=== PATIENT | female | born 1975 | race Caucasian/White ===

== ENCOUNTER 2019-08-09 09:03 | Outpatient (CLI) | payer OTHER, SELFPAY ==
[2019-08-09 09:34] LABS: Basophils Absolute Auto 0.1 K/mm3 (0.0-0.1); Basophils Percent Auto 0.8 % (0.2-1.2); Eosinophils Absolute Auto 0.3 K/mm3 (0-0.3); Eosinophils Percent Auto 4.3 % (0-4.4); Hemoglobin 9.7 g/dL (12.0-15.0); Immature Granulocyte Absolute 0.03 K/mm3 (0.00-0.031); Immature Granulocyte Percent A 0.4 % (0-0.5); Lymphocytes Absolute Auto 2.22 K/mm3 (0.9-3.2); Lymphocytes Percent Auto 28.9 % (18.3-44.2); Mean Corpuscular HGB Conc 31.3 g/dl (32-36); Mean Corpuscular Volume 86.4 fl (80-100); Mean Platelet Volume 10.5 fl (7.4-10.4); Monocytes Absolute Auto 0.9 K/mm3 (0.1-0.6); Monocytes Percent Auto 11.2 % (2.6-8.5); Neutrophils Absolute Auto 4.2 K/mm3 (1.3-6.7); Neutrophils Percent Auto 54.4 % (45.5-73.1); Platelet Count Result 348 k/mm3 (150-375); Red Blood Count 3.59 M/mm3 (4.2-5.4); Red Cell Distribution Width 14.6 % (11.5-14.5); White Blood Count 7.7 K/mm3 (4.5-10.0)
[2019-08-09 09:48] LABS: Alanine Aminotransferase 26 U/L (4-35); Albumin Level 4.3 g/dL (3.5-5.1); Alkaline Phosphatase 95 U/L (38-126); Aspartate Amino Transferase 32 U/L (14-36); Bilirubin,Total 0.2 mg/dL (0.2-1.3); Blood Urea Nitrogen 9 mg/dL (7-17); Calcium 9.1 mg/dL (8.4-10.2); Carbon Dioxide 26 mmol/L (22-30); Chloride 103 mmol/L (98-107); Estimated Glomerular Filt Rate > 60; Glucose 99 mg/dL (65-105); Potassium 3.9 mmol/L (3.4-5.0); Sodium 138 mmol/L (137-145)
[2019-08-09 09:55] LABS: Immunoglobulin A 256 mg/dL (70-400); Immunoglobulin G 897 mg/dL (700-1600); Immunoglobulin M 97 mg/dL (40-230)
[2019-08-13 22:17] LABS: Immunoglobulin E 13 kU/L (<=114)
== END 2019-08-09 09:04 | disposition home or self-care (01) ==
PROVIDERS: PCP Internal Medicine
DX: G35 Multiple sclerosis (principal); Z79.899 Other long term (current) drug therapy
CPT/HCPCS: 36415; 80053; 82784; 82785; 85025

== ENCOUNTER 2019-09-22 12:23 | Outpatient (CLI) | payer OTHER, SELFPAY ==
[2019-09-22 12:48] LABS: Basophils Absolute Auto 0.1 K/mm3 (0.0-0.1); Basophils Percent Auto 0.9 % (0.2-1.2); Eosinophils Absolute Auto 0.3 K/mm3 (0-0.3); Eosinophils Percent Auto 5.4 % (0-4.4); Hematocrit 39.6 % (37.0-47.0); Hemoglobin 12.7 g/dL (12.0-15.0); Immature Granulocyte Absolute 0.04 K/mm3 (0.00-0.031); Immature Granulocyte Percent A 0.6 % (0-0.5); Lymphocytes Absolute Auto 1.75 K/mm3 (0.9-3.2); Lymphocytes Percent Auto 27.6 % (18.3-44.2); Mean Corpuscular HGB Conc 32.1 g/dl (32-36); Mean Corpuscular Hemoglobin 29.1 pg (26-34); Mean Corpuscular Volume 90.8 fl (80-100); Mean Platelet Volume 10.3 fl (7.4-10.4); Monocytes Absolute Auto 0.5 K/mm3 (0.1-0.6); Monocytes Percent Auto 8.4 % (2.6-8.5); Neutrophils Absolute Auto 3.6 K/mm3 (1.3-6.7); Neutrophils Percent Auto 57.1 % (45.5-73.1); Platelet Count Result 334 k/mm3 (150-375); Red Blood Count 4.36 M/mm3 (4.2-5.4); Red Cell Distribution Width 18.6 % (11.5-14.5); White Blood Count 6.3 K/mm3 (4.5-10.0)
[2019-09-22 13:02] LABS: Alanine Aminotransferase 41 U/L (4-35); Albumin Level 4.5 g/dL (3.5-5.1); Alkaline Phosphatase 103 U/L (38-126); Aspartate Amino Transferase 37 U/L (14-36); Bilirubin,Total < 0.1 mg/dL (0.2-1.3); Blood Urea Nitrogen 8 mg/dL (7-17); Calcium 8.9 mg/dL (8.4-10.2); Carbon Dioxide 24 mmol/L (22-30); Chloride 106 mmol/L (98-107); Estimated Glomerular Filt Rate > 60; Glucose 93 mg/dL (65-105); Sodium 138 mmol/L (137-145)
[2019-09-22 13:33] LABS: Thyroid Stimulating Hormone 0.667 uIU/mL (0.465-4.680)
[2019-09-22 13:56] LABS: Iron 51 ug/dL (37-170)
[2019-09-22 14:05] LABS: Percent Iron Saturation 14 % (20-50)
[2019-09-22 14:08] LABS: Folic Acid 10.3 ng/mL (2.76->20)
== END 2019-09-22 12:24 | disposition home or self-care (01) ==
PROVIDERS: PCP Internal Medicine; Visit Provider Internal Medicine
DX: D64.9 Anemia, unspecified (principal); R53.83 Other fatigue
CPT/HCPCS: 36415; 80053; 82607; 82728; 82746; 83540; 83550; 84443; 85025

== ENCOUNTER 2020-01-27 17:54 | Outpatient (CLI) | payer OTHER, SELFPAY ==
[2020-01-27 18:11] LABS: Add Urine Microscopic? YES; Appearance Urine Cloudy (Clear); Bacteria Urine 1+ /hpf; Bilirubin Urine Negative (Negative); Blood Urine Negative (Negative); Color Urine Yellow (Yellow); Glucose Urine UA Negative (Negative); Ketones Urine Negative (Negative); Leukocyte Esterase Ur 2+ LEU/UL (Negative); Mucus Urine Rare /lpf; Nitrate Urine Negative (Negative); Protein Urine Negative (Negative); Renal Epithelial Cells Urine Rare /hpf (None Seen); Specific Grav Ur 1.014 (1.001-1.035); Squamous Epithelial Cell Urine Many /hpf (Few); Urobilinogen Urine Negative mg/dL (<2.0); WBC Urine 21-30 /hpf
== END 2020-01-27 17:55 | disposition home or self-care (01) ==
LOC: ANHLAB 17:54
PROVIDERS: PCP Internal Medicine; Visit Provider Psychiatry & Neurology Neurology
DX: R30.0 Dysuria (principal)
CPT/HCPCS: 81001; 87086; 87088

== ENCOUNTER 2020-02-06 11:35 | Outpatient (CLI) | payer OTHER, SELFPAY ==
[2020-02-06 12:13] LABS: Basophils Absolute Auto 0.1 K/mm3 (0.0-0.1); Basophils Percent Auto 0.8 % (0.2-1.2); Eosinophils Absolute Auto 0.2 K/mm3 (0-0.3); Hematocrit 41.2 % (37.0-47.0); Hemoglobin 14.3 g/dL (12.0-15.0); Immature Granulocyte Absolute 0.03 K/mm3 (0.00-0.031); Immature Granulocyte Percent A 0.4 % (0-0.5); Lymphocytes Absolute Auto 2.11 K/mm3 (0.9-3.2); Lymphocytes Percent Auto 28.9 % (18.3-44.2); Mean Corpuscular HGB Conc 34.7 g/dl (32-36); Mean Corpuscular Hemoglobin 33.8 pg (26-34); Mean Corpuscular Volume 97.4 fl (80-100); Mean Platelet Volume 10.2 fl (7.4-10.4); Monocytes Absolute Auto 0.7 K/mm3 (0.1-0.6); Monocytes Percent Auto 9.3 % (2.6-8.5); Neutrophils Absolute Auto 4.2 K/mm3 (1.3-6.7); Neutrophils Percent Auto 57.6 % (45.5-73.1); Platelet Count Result 309 k/mm3 (150-375); Red Blood Count 4.23 M/mm3 (4.2-5.4); Red Cell Distribution Width 12.7 % (11.5-14.5); White Blood Count 7.3 K/mm3 (4.5-10.0)
[2020-02-06 12:26] LABS: Alanine Aminotransferase 35 U/L (4-35); Albumin Level 4.6 g/dL (3.5-5.1); Alkaline Phosphatase 107 U/L (38-126); Anion Gap 11 mmol/L (8-16); Aspartate Amino Transferase 32 U/L (14-36); Bilirubin,Total 0.3 mg/dL (0.2-1.3); Blood Urea Nitrogen 11 mg/dL (7-17); Calcium 9.2 mg/dL (8.4-10.2); Carbon Dioxide 27 mmol/L (22-30); Chloride 103 mmol/L (98-107); Estimated Glomerular Filt Rate > 60; Glucose 110 mg/dL (65-105); Potassium 3.5 mmol/L (3.4-5.0); Sodium 141 mmol/L (137-145)
[2020-02-11 01:04] LABS: Immunoglobulin E 13 kU/L (<=114)
[2020-02-11 12:40] LABS: Immunoglobulin A 240 mg/dL (47-310); Immunoglobulin G 997 mg/dL (600-1640); Immunoglobulin M 86 mg/dL (50-300)
== END 2020-02-06 11:36 | disposition home or self-care (01) ==
LOC: ANHLAB 11:38
PROVIDERS: PCP Internal Medicine; Visit Provider Psychiatry & Neurology Neurology
DX: G35 Multiple sclerosis (principal); Z79.899 Other long term (current) drug therapy
CPT/HCPCS: 36415; 80053; 82784; 82785; 85025

== ENCOUNTER 2020-03-31 06:54 | Outpatient (NON) | payer OTHER, SELFPAY ==
[2020-03-31 18:06] LABS: SARS-CoV-2 RNA PCR Negative
== END 2020-03-31 06:55 ==
LOC: ANHCOVIDDT 07:14
PROVIDERS: PCP Internal Medicine; Visit Provider Clinical Nurse Specialist
DX: Z20.828 Contact with and (suspected) exposure to other viral communicable diseases (principal); R05 Cough
CPT/HCPCS: 87635; C9803; U0003

== ENCOUNTER 2020-04-01 18:08 | Outpatient (CLI) | payer OTHER, SELFPAY ==
--- NOTE | ~2020-04-01 | XR_ITS ---
EXAMINATION: XR chest 2V EXAM DATE: 04/01/2020 18:26 INDICATION: Cough for 4 days. TECHNIQUE: Frontal and lateral projections of the chest obtained and reviewed. Comparison is made to prior examination from 04/30/2019. FINDINGS: The lungs are clear. There are no pleural effusions. The cardiomediastinal silhouette is within normal limits. There is no pneumothorax suspected. The bones and soft tissues are unremarkab le. There is no significant interval change. IMPRESSION: No acute cardiopulmonary findings. Reviewed, dictated and finalized at location G. UREMENT MANAGER
== END 2020-04-01 18:09 | disposition home or self-care (01) ==
PROVIDERS: PCP Internal Medicine; Visit Provider Clinical Nurse Specialist
DX: R05 Cough (principal)
CPT/HCPCS: 71046

== ENCOUNTER 2020-04-17 06:58 | Outpatient (NON) | payer SELFPAY ==
[2020-04-19 08:12] LABS: Influenza Control Positive
[2020-04-19 18:50] LABS: SARS-CoV-2 RNA PCR Negative
== END 2020-04-17 06:59 ==
LOC: ANHCOVIDDT 06:58
PROVIDERS: PCP Internal Medicine; Visit Provider Clinical Nurse Specialist
DX: J02.9 Acute pharyngitis, unspecified (principal); Z20.828 Contact with and (suspected) exposure to other viral communicable diseases
CPT/HCPCS: 87804; C9803; U0003

== ENCOUNTER 2020-08-12 13:37 | Outpatient (CLI) | payer BC, SELFPAY ==
[2020-08-12 14:09] LABS: Basophils Percent Auto 0.5 % (0.2-1.2); Eosinophils Absolute Auto 0.2 K/mm3 (0-0.3); Eosinophils Percent Auto 2.6 % (0-4.4); Hematocrit 35.8 % (37.0-47.0); Hemoglobin 11.8 g/dL (12.0-15.0); Immature Granulocyte Absolute 0.02 K/mm3 (0.00-0.031); Immature Granulocyte Percent A 0.2 % (0-0.5); Lymphocytes Absolute Auto 2.11 K/mm3 (0.9-3.2); Lymphocytes Percent Auto 25.6 % (18.3-44.2); Mean Corpuscular Hemoglobin 30.4 pg (26-34); Mean Corpuscular Volume 92.3 fl (80-100); Mean Platelet Volume 9.8 fl (7.4-10.4); Monocytes Absolute Auto 0.8 K/mm3 (0.1-0.6); Monocytes Percent Auto 9.4 % (2.6-8.5); Neutrophils Absolute Auto 5.1 K/mm3 (1.3-6.7); Neutrophils Percent Auto 61.7 % (45.5-73.1); Platelet Count Result 329 k/mm3 (150-375); Red Blood Count 3.88 M/mm3 (4.2-5.4); Red Cell Distribution Width 12.8 % (11.5-14.5); White Blood Count 8.2 K/mm3 (4.5-10.0)
[2020-08-12 14:25] LABS: Alanine Aminotransferase 39 U/L (4-35); Albumin Level 4.6 g/dL (3.5-5.1); Alkaline Phosphatase 105 U/L (38-126); Anion Gap 10 mmol/L (8-16); Aspartate Amino Transferase 32 U/L (14-36); Bilirubin,Total 0.1 mg/dL (0.2-1.3); Blood Urea Nitrogen 6 mg/dL (7-17); Calcium 9.1 mg/dL (8.4-10.2); Carbon Dioxide 25 mmol/L (22-30); Chloride 105 mmol/L (98-107); Estimated Glomerular Filt Rate > 60; Glucose 126 mg/dL (65-105); Potassium 3.5 mmol/L (3.4-5.0); Sodium 140 mmol/L (137-145)
[2020-08-12 14:34] LABS: Immunoglobulin A 233 mg/dL (70-400); Immunoglobulin G 936 mg/dL (700-1600); Immunoglobulin M 81 mg/dL (40-230)
[2020-08-17 04:28] LABS: Immunoglobulin E 13 kU/L (<=114)
== END 2020-08-12 13:38 | disposition home or self-care (01) ==
LOC: ANHLAB 13:44
PROVIDERS: PCP Internal Medicine; Visit Provider Psychiatry & Neurology Neurology
DX: G35 Multiple sclerosis (principal); Z79.899 Other long term (current) drug therapy
CPT/HCPCS: 36415; 80053; 82784; 82785; 85025

== ENCOUNTER 2020-09-09 10:51 | Emergency (ER) | payer BC, MEDICAID, SELFPAY ==
[2020-09-09 10:59] VITALS: BP 179/100; PULSE 98; RESP 18; O2SAT 94
--- NOTE | 2020-09-09 11:49 | ED.PSYCH ---
HPI - Psych General Chief Complaint: Psychiatric Symptoms Stated Complaint: depression Time Seen by Provider: 09/09/20 11:26 Source: patient and RN notes reviewed Mode of arrival: ambulatory History of Present Illness HPI Narrative: Patient is 45 years old white female brought to the emergency room by her because of stress, depression and suicidal ideation.. Patient been having the above symptoms for a while, cannot afford psychiatrist or buying any antidepression medication. Patient had a plan to end her life by taking a lot of pills. Patient had a handful of pills 2 days ago and was about to take them but her came at the right time and took them away from her. History of multiple sclerosis, she been using medical cannabis to reduce her MS symptoms and stress symptoms. Currently patient in tears, unable to answer all the question clearly because unable to stop crying. Patient denies any fever, chills, nausea, vomiting, chest pain, shortness breath or headache Related Data Home Medications Medication Instructions Recorded Confirmed esomeprazole magnesium 40 mg 40 mg PO DAILY 04/23/19 03/30/20 capsule,delayed release fludrocortisone 0.1 mg tablet 0.1 mg PO DAILY PRN 04/23/19 03/30/20 ocrelizumab 30 mg/mL intravenous 600 mg IVPB [id number] ml 04/23/19 03/30/20 solution tizanidine 4 mg capsule 12 mg PO TID PRN cap 09/16/19 03/30/20 oxcarbazepine 300 mg tablet 400 mg PO DAILY tablet 01/13/20 03/30/20 trazodone 50 mg tablet 50 mg PO .Qhs tablet 03/30/20 03/30/20 Allergies Allergy/AdvReac Type Severity Reaction Status Date / Time ciprofloxacin Allergy Mild NAUSEA Verified 04/15/20 10:32 propoxyphene Allergy Mild RASH Verified 04/15/20 10:32 acetaminophen Allergy itching Verified 04/15/20 10:32 [From Han] baclofen Allergy BP weird Verified 04/15/20 10:32 ofloxacin Allergy Unknown Verified 04/15/20 10:32 Review of Systems Review of Systems: Narrative: CONSTITUTIONAL: Denies fever, chills, or sweats. EYES: Denies visual changes, redness, or discharge. ENT: Denies rhinorrhea, congestion, sore throat, or otalgia. CARDIOVASCULAR: Denies chest pain, palpitations, or edema. RESPIRATORY: Denies cough or dyspnea. GASTROINTESTINAL: Denies abdominal pain, nausea, vomiting, or diarrhea. GENITOURINARY: Denies dysuria or hematuria. SKIN: Denies rash or itching. MUSCULOSKELETAL: Denies back pain, joint pain, or myalgia. NEUROLOGIC: Denies headache, numbness, or weakness. PSYCHIATRIC: Denies anxiety or depression. PMFSH Past Medical History Medical History Anxiety Barakat's esophagus Deviated septum Gastroparesis GERD (gastroesophageal reflux disease) HTN (hypertension) Labile hypertension Multiple sclerosis Surgical History Surgical History History of section History of cholecystectomy Family History Family History Father Hypertension Family history of transient ischemic attacks Family history of gastrointestinal disorder Family history of coronary artery disease Mother Patient's mother is in good health Grandparent Pancreatic cancer Social History Social History Smoking status: Never smoker Alcohol intake: never Exam Narrative: Exam Narrative: General appearance: Well-developed, well-nourished, in tears Skin: Normal color Head: Normocephalic, nontraumatic Eyes: Clear conjunctiva ENT: Oropharynx normal, ears normal, nose normal Neck: Supple, nontender Chest and respiratory: Airway patent, no respiratory distress, no accessory muscle use Heart: Regular rate/rhythm Abdomen: Soft, nontender, no organomegaly, quiet bowel sounds Vascular: Normal peripheral pulses, normal capillary refill. Musculoskeletal: Normal range of motion, nontender back Neurologic: Alert and orien
[2020-09-09 12:22] LABS: Basophils Absolute Auto 0.1 K/mm3 (0.0-0.1); Basophils Percent Auto 0.6 % (0.2-1.2); Eosinophils Absolute Auto 0.1 K/mm3 (0-0.3); Eosinophils Percent Auto 0.6 % (0-4.4); Hematocrit 39.5 % (37.0-47.0); Hemoglobin 13.1 g/dL (12.0-15.0); Immature Granulocyte Absolute 0.04 K/mm3 (0.00-0.031); Immature Granulocyte Percent A 0.4 % (0-0.5); Lymphocytes Absolute Auto 1.76 K/mm3 (0.9-3.2); Lymphocytes Percent Auto 17.3 % (18.3-44.2); Mean Corpuscular HGB Conc 33.2 g/dl (32-36); Mean Corpuscular Hemoglobin 28.9 pg (26-34); Mean Corpuscular Volume 87.2 fl (80-100); Mean Platelet Volume 10.2 fl (7.4-10.4); Monocytes Absolute Auto 0.8 K/mm3 (0.1-0.6); Monocytes Percent Auto 7.8 % (2.6-8.5); Neutrophils Absolute Auto 7.5 K/mm3 (1.3-6.7); Neutrophils Percent Auto 73.3 % (45.5-73.1); Platelet Count Result 356 k/mm3 (150-375); Red Blood Count 4.53 M/mm3 (4.2-5.4); Red Cell Distribution Width 13.4 % (11.5-14.5); White Blood Count 10.2 K/mm3 (4.5-10.0)
[2020-09-09 12:30] LABS: Add Urine Microscopic? YES; Appearance Urine Cloudy (Clear); Bilirubin Urine Negative (Negative); Blood Urine 2+ (Negative); Color Urine Yellow (Yellow); Glucose Urine UA Negative (Negative); Ketones Urine 1+ mg/dL (Negative); Leukocyte Esterase Ur Trace LEU/UL (Negative); Mucus Urine Heavy /lpf; Nitrate Urine Negative (Negative); Protein Urine 2+ mg/dL (Negative); Specific Grav Ur 1.029 (1.001-1.035); Squamous Epithelial Cell Urine Many /hpf (Few); Urobilinogen Urine Negative mg/dL (<2.0)
[2020-09-09 12:35] LABS: Ethanol < 10 mg/dL (<10)
[2020-09-09 12:40] LABS: Alanine Aminotransferase 37 U/L (4-35); Alkaline Phosphatase 128 U/L (38-126); Anion Gap 14 mmol/L (8-16); Aspartate Amino Transferase 37 U/L (14-36); Bilirubin,Total 0.5 mg/dL (0.2-1.3); Blood Urea Nitrogen 11 mg/dL (7-17); Calcium 9.6 mg/dL (8.4-10.2); Carbon Dioxide 19 mmol/L (22-30); Chloride 107 mmol/L (98-107); Estimated Glomerular Filt Rate > 60; Glucose 97 mg/dL (65-105); Potassium 3.7 mmol/L (3.4-5.0); Sodium 140 mmol/L (137-145)
[2020-09-09 12:46] LABS: Amphetamine Screen Urine Negative (Negative); Barbiturate Screen Urine Negative (Negative); Benzodiazepines Screen Urine Negative (Negative); Cannabinoid Screen Urine Positive (Negative); Cocaine Screen Urine Negative (Negative); Methadone Screen Urine Negative (Negative); Opiate Screen Urine Negative (Negative); Phencyclidine Screen Urine Negative (Negative)
[2020-09-09 13:13] LABS: Thyroid Stimulating Hormone 0.959 uIU/mL (0.465-4.680)
[2020-09-09] MEDS: IBUPROFEN 600 MG TABLET PO (13:57)
[2020-09-09] MEDS: TIZANIDINE HCL 4 MG TABLET 12 MG PO (16:16)
--- NOTE | 2020-09-09 16:59 | PC.NURSE ---
Deepa from [facility] contacted in regards to pt. Will send someone out to speak with pt.
[2020-09-09 17:22] VITALS: BP 146/95; PULSE 97; RESP 18; O2SAT 99
--- NOTE | 2020-09-09 17:28 | PC.NURSE ---
Loretta from crisis called. She is on her way to speak with pt.
--- NOTE | 2020-09-09 18:00 | PC.NURSE ---
Loretta here to see pt.
--- NOTE | 2020-09-09 19:01 | PC.NURSE ---
Pt paperwork faxed to [facility] by Loretta .
--- NOTE | 2020-09-09 22:20 | PC.NURSE ---
[facility] has accepted patient, we are awaiting room number and accepting md name.
[2020-09-10 02:26] VITALS: BP 148/86; PULSE 78; RESP 16; TEMP 36.2; O2SAT 98
[2020-09-10 16:11] LABS: SARS-CoV-2 RNA PCR Negative
== END 2020-09-10 02:27 ==
PROVIDERS: Emergency Provider Emergency Medicine; PCP Internal Medicine
DX: F32.9 Major depressive disorder, single episode, unspecified (principal); R45.851 Suicidal ideations; Z20.822 Contact with and (suspected) exposure to COVID-19; G35 Multiple sclerosis; F41.9 Anxiety disorder, unspecified; K22.70 Barrett's esophagus without dysplasia; K21.9 Gastro-esophageal reflux disease without esophagitis; I10 Essential (primary) hypertension
CPT/HCPCS: 36415; 80053; 80307; 81001; 81025; 84443; 85025; 99285; A9270; C9803; U0003; U0005

== ENCOUNTER 2021-01-10 09:00 | Outpatient (RCR) | payer MEDICAID, SELFPAY ==
--- NOTE | 2020-12-13 16:11 | PTOPEVAL ---
Thank you for referring Cris Do to [facility].? The patient is scheduled to be seen for therapy?1 x/week for 4 weeks. Please review, sign, date and return this plan of care SHIRA. I agree with and certify that the following plan of care is medically necessary. Referring Physician Date Attending Provider: Sarai Daniel, PROP AND EFFECTS DESIGNER-C Diagnosis MS Onset 2013 Additional Evaluation Detail fall in 2007 resulting in tib/ fib fracture. Abnormal MRI in 2006, but not DX until 2013. She does not have a cane, walker or wc at home. 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 Subjective Information She reports 2-3 falls in the Query Text:As Reported By Patient/ past 6 months. She has had Family falls walking up the steps, medical change- fainted, walking on change of surface. C/o her legs being tired at the end of the day. She feels like her gait is off . She is having a good day due to steroids. She c/o left leg pain. She is also losing her hand strength, difficulty with speech. She has received therapy at [facility] in the past. Prior Level of Function Home Setting Home Type Apartment Environmental Barriers Railing, Ascend Left,Railing, None,Stairs, 2-4,Stairs, Greater than 4 Living Situation With Spouse Mobility Assistive Devices (Used Last 3 None Months) Comments Additional Prior Level of Function She has 2 steps to enter Comments without HR, 1 flight to bedroom with left railing and 1 flight to laundry room. Pain Assessment Self Report Pain Assessment Leg(s) Reported Pain Level 5 Lower Extremity Range of Motion General Lower Extremity Range of Motion Reason Not Measured WFL/Left,WFL/Right Lower Extremity Muscle Strength Testing General Lower Extremity Strength Gross Lower Extremity Strength left hip flex: 3/5, left hip ext: 3+/5, hip abd: 3/5 right hip abd: 3+/5, right hip ext: 3+/5, hip flex: 3/5 jarett knee ext: 4+/5 and knee
--- NOTE | 2020-12-23 09:01 | PCPTNOTE ---
Patient called & cancelled scheduled appointment this date due to being sick.
--- NOTE | 2021-01-10 09:24 | PCPTNOTE ---
Patient did not show up for scheduled appointment this date. Called pt and left message regarding missed visit. No additional visits scheduled at this time.
--- NOTE | 2021-01-10 14:35 | PTOPEVAL ---
Physical Therapy progress note Thank you for referring Cris Do to [facility].?Cris has attended 4 therapy visits to address her balance, functional mobility with device and strengthening exercises. She is progressing towards her therapy goals. See summary below for objective measures. The patient is scheduled to be seen for therapy?1 visit every other week for 2 additional visits. Please review, sign, date and return this plan of care SHIRA. I agree with and certify that the following plan of care is medically necessary. Referring Physician Date Attending Provider: Sarai Daniel, DAVID-Sheldon Diagnosis MS Onset 2013 Additional Evaluation Detail fall in 2007 resulting in tib/ fib fracture. Abnormal MRI in 2006, but not DX until 2013. She does not have a cane, walker or wc at home. 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 Subjective Information She denies any falls in the Query Text:As Reported By Patient/ past month. She has learned to Family pace her activities better to avoid fatigue. She has learned to move better to decrease falls and use her body better. She cont to fees like her gait is off . She wants to return back to normal and is trying to accept she has to figure out a new normal. She does feel like she can negotiate the steps better. Pain Assessment Timing of Pain Assessment Timing of Pain Assessment Re-assessment Pain Scale Pain Scale Used Numeric (1 - 10) Self Report Pain Assessment Leg(s) Reported Pain Level 5 Pain Frequency Chronic Lowest Pain Intensity 3 Greatest Pain Intensity 9 Pain Score Pain Score 5: Self Report Interventions Used Interventions Used By Clinicians Education Lower Extremity Muscle Strength Testing General Lower Extremity Strength Gross Lower Extremity Strength left hip flex: 4-/5, left hip ext: 4/5, hip abduction: 3+/5 right hip flex: 4-/5, right hip ext: 4/5, hip abduction: 3 +/5 jarett knee ext: 4+/5 and knee flex: 3+/5 Transfer Assessment Floor Transfer Assessment Ambulation Assistive Devices None Floor Transfer Destination
--- NOTE | 2021-01-20 08:22 | PCPTNOTE ---
Patient did not show up for scheduled appointment this date. Called pt, but she was sleeping and unable to talk. Left message for her to call to reschedule.
--- NOTE | 2021-02-15 11:27 | PCPTNOTE ---
Admitting Provider: Attending Provider: LESTER Mireles Patient:Cris Do Date of :1975 Discharge Summary Patient has not returned for any further treatments since 01/10/2021, therefore she will be discharged at this time. Patient?s initial visit was on 12/13/2020 she had a total of 4 visits with 3 no shows. The goals have been partially met at this time. Thank you for referring this patient to [facility]. Please review, sign, date and return this discharge summary SHIRA. I have been updated about the patient's current status and I agree with discharge from the above service at this time. Referring Physician Date
== END 2021-02-16 11:59 | disposition home or self-care (01) ==
LOC: ANHPT 09:00
PROVIDERS: PCP Internal Medicine; Visit Provider Clinical Nurse Specialist
DX: G35 Multiple sclerosis (principal)
CPT/HCPCS: 97110; 97112; 97116; 97162; 97530

== ENCOUNTER 2021-04-27 14:01 | Outpatient (CLI) | payer OTHER, SELFPAY ==
[2021-04-27 14:46] LABS: Alanine Aminotransferase 17 U/L (4-35); Albumin Level 4.6 g/dL (3.5-5.1); Alkaline Phosphatase 81 U/L (38-126); Anion Gap 8 mmol/L (8-16); Aspartate Amino Transferase 23 U/L (14-36); Bilirubin,Total 0.3 mg/dL (0.2-1.3); Blood Urea Nitrogen 11 mg/dL (7-17); Calcium 9.2 mg/dL (8.4-10.2); Carbon Dioxide 26 mmol/L (22-30); Chloride 105 mmol/L (98-107); Estimated Glomerular Filt Rate 59; Glucose 101 mg/dL (65-110); Potassium 4.2 mmol/L (3.4-5.0); Sodium 139 mmol/L (137-145)
[2021-04-27 14:47] LABS: Basophils Absolute Auto 0.1 K/mm3 (0.0-0.1); Basophils Percent Auto 0.7 % (0.2-1.2); Eosinophils Absolute Auto 0.2 K/mm3 (0-0.3); Eosinophils Percent Auto 2.9 % (0-4.4); Hematocrit 39.5 % (37.0-47.0); Hemoglobin 13.4 g/dL (12.0-15.0); Immature Granulocyte Absolute 0.02 K/mm3 (0.00-0.031); Immature Granulocyte Percent A 0.3 % (0-0.5); Lymphocytes Absolute Auto 2.04 K/mm3 (0.9-3.2); Mean Corpuscular HGB Conc 33.9 g/dl (32-36); Mean Corpuscular Hemoglobin 33.3 pg (26-34); Mean Platelet Volume 10.6 fl (7.4-10.4); Monocytes Absolute Auto 0.7 K/mm3 (0.1-0.6); Monocytes Percent Auto 10.3 % (2.6-8.5); Neutrophils Absolute Auto 3.8 K/mm3 (1.3-6.7); Neutrophils Percent Auto 55.8 % (45.5-73.1); Platelet Count Result 290 k/mm3 (150-375); Red Blood Count 4.03 M/mm3 (4.2-5.4); Red Cell Distribution Width 12.3 % (11.5-14.5); White Blood Count 6.8 K/mm3 (4.5-10.0)
[2021-04-27 14:55] LABS: Immunoglobulin A 215 mg/dL (70-400); Immunoglobulin G 870 mg/dL (700-1600); Immunoglobulin M 86 mg/dL (40-230)
[2021-05-01 03:11] LABS: Immunoglobulin E 10 kU/L (<=114)
== END 2021-04-27 14:02 | disposition home or self-care (01) ==
PROVIDERS: PCP Internal Medicine; Visit Provider Psychiatry & Neurology Neurology
DX: G35 Multiple sclerosis (principal)
CPT/HCPCS: 36415; 80053; 82784; 82785; 85025

== ENCOUNTER 2021-12-15 14:23 | Outpatient (CLI) | payer OTHER, SELFPAY ==
[2021-12-15 14:47] LABS: Basophils Absolute Auto 0.1 K/mm3 (0.0-0.1); Basophils Percent Auto 0.9 % (0.2-1.2); Eosinophils Absolute Auto 0.2 K/mm3 (0-0.3); Eosinophils Percent Auto 2.5 % (0-4.4); Hematocrit 39.9 % (37.0-47.0); Hemoglobin 13.6 g/dL (12.0-15.0); Immature Granulocyte Absolute 0.02 K/mm3 (0.00-0.031); Immature Granulocyte Percent A 0.2 % (0-0.5); Lymphocytes Absolute Auto 2.64 K/mm3 (0.9-3.2); Lymphocytes Percent Auto 32.8 % (18.3-44.2); Mean Corpuscular HGB Conc 34.1 g/dl (32-36); Mean Corpuscular Hemoglobin 33.6 pg (26-34); Mean Corpuscular Volume 98.5 fl (80-100); Mean Platelet Volume 10.2 fl (7.4-10.4); Monocytes Absolute Auto 0.7 K/mm3 (0.1-0.6); Monocytes Percent Auto 8.1 % (2.6-8.5); Neutrophils Absolute Auto 4.5 K/mm3 (1.3-6.7); Neutrophils Percent Auto 55.5 % (45.5-73.1); Platelet Count Result 256 k/mm3 (150-375); Red Blood Count 4.05 M/mm3 (4.2-5.4); Red Cell Distribution Width 11.9 % (11.5-14.5)
[2021-12-15 14:58] LABS: Alanine Aminotransferase 12 U/L (6-35); Albumin Level 4.6 g/dL (3.5-5.1); Alkaline Phosphatase 83 U/L (38-126); Anion Gap 10 mmol/L (8-16); Aspartate Amino Transferase 21 U/L (14-36); Bilirubin,Total 0.3 mg/dL (0.2-1.3); Blood Urea Nitrogen 9 mg/dL (7-17); Calcium 9.7 mg/dL (8.4-10.2); Carbon Dioxide 29 mmol/L (22-30); Chloride 98 mmol/L (98-107); Estimated Glomerular Filt Rate > 60; Glucose 94 mg/dL (65-110); Potassium 3.8 mmol/L (3.4-5.0); Sodium 137 mmol/L (137-145)
[2021-12-15 15:05] LABS: Immunoglobulin A 206 mg/dL (70-400); Immunoglobulin G 989 mg/dL (700-1600); Immunoglobulin M 80 mg/dL (40-230)
[2021-12-19 19:25] LABS: Immunoglobulin E 11 kU/L (<=114)
== END 2021-12-15 14:24 | disposition home or self-care (01) ==
PROVIDERS: PCP Internal Medicine; Visit Provider Psychiatry & Neurology Neurology
DX: G35 Multiple sclerosis (principal); Z79.899 Other long term (current) drug therapy
CPT/HCPCS: 36415; 80053; 82784; 82785; 85025

== ENCOUNTER 2022-06-22 07:56 | Outpatient (CLI) | payer OTHER, SELFPAY ==
[2022-06-22 08:57] LABS: Basophils Absolute Auto 0.1 K/mm3 (0.0-0.1); Basophils Percent Auto 0.9 % (0.2-1.2); Eosinophils Absolute Auto 0.3 K/mm3 (0-0.3); Eosinophils Percent Auto 4.3 % (0-4.4); Hemoglobin 14.3 g/dL (12.0-15.0); Immature Granulocyte Absolute 0.02 K/mm3 (0.00-0.031); Immature Granulocyte Percent A 0.3 % (0-0.5); Lymphocytes Absolute Auto 1.95 K/mm3 (0.9-3.2); Lymphocytes Percent Auto 29.8 % (18.3-44.2); Mean Corpuscular HGB Conc 34.9 g/dl (32-36); Mean Corpuscular Hemoglobin 33.8 pg (26-34); Mean Corpuscular Volume 96.9 fl (80-100); Mean Platelet Volume 10.4 fl (7.4-10.4); Monocytes Absolute Auto 0.6 K/mm3 (0.1-0.6); Monocytes Percent Auto 8.5 % (2.6-8.5); Neutrophils Absolute Auto 3.7 K/mm3 (1.3-6.7); Neutrophils Percent Auto 56.2 % (45.5-73.1); Platelet Count Result 302 k/mm3 (150-375); Red Blood Count 4.23 M/mm3 (4.2-5.4); Red Cell Distribution Width 11.8 % (11.5-14.5); White Blood Count 6.6 K/mm3 (4.5-10.0)
[2022-06-22 09:16] LABS: Alanine Aminotransferase 21 U/L (6-35); Albumin Level 4.7 g/dL (3.5-5.1); Alkaline Phosphatase 94 U/L (38-126); Anion Gap 5 mmol/L (8-16); Aspartate Amino Transferase 24 U/L (14-36); Bilirubin,Total 0.4 mg/dL (0.2-1.3); Blood Urea Nitrogen 8 mg/dL (7-17); Calcium 8.8 mg/dL (8.4-10.2); Carbon Dioxide 27 mmol/L (22-30); Chloride 108 mmol/L (98-107); Estimated Glomerular Filt Rate > 60; Glucose 95 mg/dL (65-110); Potassium 4.1 mmol/L (3.4-5.0); Sodium 140 mmol/L (137-145)
[2022-06-22 09:17] LABS: Immunoglobulin A 207 mg/dL (70-400); Immunoglobulin G 1072 mg/dL (700-1600); Immunoglobulin M 84 mg/dL (40-230)
[2022-06-25 19:59] LABS: Immunoglobulin E 9 kU/L (<=114)
[2022-06-26 06:22] LABS: Hepatitis B Core Ab Total Nonreactive (Nonreactive)
== END 2022-06-22 07:57 | disposition home or self-care (01) ==
PROVIDERS: PCP Internal Medicine; Visit Provider Psychiatry & Neurology Neurology
DX: G35 Multiple sclerosis (principal); Z11.59 Encounter for screening for other viral diseases; Z79.899 Other long term (current) drug therapy
CPT/HCPCS: 36415; 80053; 82784; 82785; 85025; 86704

== ENCOUNTER 2022-07-03 13:32 | Outpatient (CLI) | payer OTHER, SELFPAY ==
[2022-07-03 20:20] LABS: Vitamin D 25 Hydroxy 44.3 ng/mL
[2022-07-03 21:34] LABS: Alanine Aminotransferase 20 U/L (6-35); Albumin Level 4.3 g/dL (3.5-5.1); Alkaline Phosphatase 84 U/L (38-126); Anion Gap 6 mmol/L (8-16); Aspartate Amino Transferase 21 U/L (14-36); Bilirubin,Total 0.3 mg/dL (0.2-1.3); Blood Urea Nitrogen 8 mg/dL (7-17); Carbon Dioxide 29 mmol/L (22-30); Chloride 104 mmol/L (98-107); Cholesterol 212 mg/dL (0-200); Estimated Glomerular Filt Rate > 60; Glucose 86 mg/dL (65-110); HDL Direct 28 mg/dL; Potassium 4.2 mmol/L (3.4-5.0); Sodium 139 mmol/L (137-145); Triglycerides 407 mg/dL (<150)
[2022-07-03 21:45] LABS: LDL Cholesterol Direct 111 mg/dL
== END 2022-07-03 13:33 | disposition home or self-care (01) ==
LOC: ANHGOSHLAB 13:32
PROVIDERS: PCP Internal Medicine; Visit Provider Clinical Nurse Specialist
DX: G35 Multiple sclerosis (principal); E55.9 Vitamin D deficiency, unspecified; F41.9 Anxiety disorder, unspecified; I10 Essential (primary) hypertension
CPT/HCPCS: 36415; 80053; 80061; 82306; 84443

== ENCOUNTER 2022-07-10 11:39 | Outpatient (CLI) | payer OTHER, SELFPAY ==
[2022-07-10 13:02] LABS: Cholesterol 265 mg/dL (0-200); HDL Direct 32 mg/dL; Triglycerides 231 mg/dL (<150)
[2022-07-10 13:16] LABS: LDL Cholesterol Direct 163 mg/dL
== END 2022-07-10 11:40 | disposition home or self-care (01) ==
PROVIDERS: PCP Internal Medicine; Visit Provider Clinical Nurse Specialist
DX: E78.1 Pure hyperglyceridemia (principal)
CPT/HCPCS: 36415; 80061

== ENCOUNTER 2022-07-24 08:11 | Outpatient (CLI) | payer OTHER, SELFPAY ==
--- NOTE | ~2022-07-24 | NM_ITS ---
EXAMINATION: NM tomás stress w perfusion DATE: 07/24/2022 10:26 INDICATION: Shortness of breath. TECHNIQUE: Rest images were obtained following intravenous administration of 11.2 mCi Tc99m tetrofosm in (Myoview). The patient was infused intravenously with Lexiscan (regadenoson). Then, 34.8 mCi Tc99m tetrofosmin (Myoview) was administered intravenously, and stress images were obtained. Data was phil nstructed into short axis and horizontal and vertical long axis SPECT images. Gated SPECT images were also obtained. COMPARISON: None. FINDINGS: There is no definite reversible or fixed perfusion abnormality to suggest ischemia or infar ction. There is no segmental wall motion abnormality. Left ventricular ejection fraction measures 6 9%. IMPRESSION: 1. No definite ischemia or infarct. 2. Normal left ventricular ejection fraction measuring 69%. Reviewed, dictated and finalized at location A.
--- NOTE | 2022-07-24 08:29 | EST_ITS ---
Patient Info Name: Cris Do Age: 47 years : 1975 Gender: Female Ht: 62 in Wt: 150 lbs BSA: 1.74 m2 HR: 65 bpm BP: 146 / 65 mmHg Heart Rhythm: Sinus Rhythm Exam Date: 07/24/2022 9:06 AM Exam Location: [facility] Stress Patient Status: Outpatient Admit Date: 07/24/2022 Staff Ordering Physician: Sarai Daniel Attending Provider: Sarai Daniel Exercise Technologist: Mabel He CT Exercise Physician: Yfn Trevino DO Exam Type: CA stress tomás w NM Study Info Indications R06.02 - Shortness of breath A regadenoson stress test was performed. Summary 1. 1. Negative lexiscan stress test for ischemic ST changes by ECG criteria. 2. 2. Baseline hypertension. 3. 3. Nuclear scan to follow and will be reported separately. Please correlate with it. 4. 4. Patient informed of the above results. Protocol: Lexiscan Stress ECG Details Stage: REST Duration (min): 10 min : 48 sec HR (bpm): 67 SBP (mmHg): 146 DBP (mmHg): 65 Stage: REST Duration (min): 13 min : 44 sec HR (bpm): 66 SBP (mmHg): 146 DBP (mmHg): 65 Stage: STAGE 1 Duration (min): 0 min : 59 sec HR (bpm): 105 SBP (mmHg): 146 DBP (mmHg): 65 Stage: RECOVERY Duration (min): 1 min : 0 sec HR (bpm): 107 SBP (mmHg): 149 DBP (mmHg): 113 Stage: RECOVERY Duration (min): 2 min : 0 sec HR (bpm): 101 SBP (mmHg): 149 DBP (mmHg): 113 Stage: RECOVERY Duration (min): 2 min : 54 sec HR (bpm): 93 SBP (mmHg): 153 DBP (mmHg): 107 Rest HR: 66 bpm Peak HR: 112 bpm Rest Sys BP: 146 mmHg Peak Sys BP: 153 mmHg Max Pred HR: 171 bpm % Max Pred HR: 65 % Target HR: 145 bpm Max RPP: 17,136 bpm*mmHg Termination Reason: Completed protocol Cardiac Symptoms: Shortness of breath, Chest tightness, abdominal discomfort Total Time: 1 min : 0 sec Rest Bonilla BP: 65 mmHg Peak Bonilla BP: 107 mmHg Total Dose: 0.4 mg Resting ECG Sinus rhythm. Stress ECG No ST changes. Arrhythmias None. Report Signatures
== END 2022-07-24 08:12 | disposition home or self-care (01) ==
PROVIDERS: PCP Internal Medicine; Visit Provider Clinical Nurse Specialist
DX: R06.02 Shortness of breath (principal)
CPT/HCPCS: 78452; 93017; A9502; J2785

== ENCOUNTER 2022-08-04 03:26 | Day surgery (SDC) | payer OTHER, SELFPAY ==
[2022-07-26 13:43] VITALS: BMI 28.2
[2022-08-04 11:10] VITALS: BP 115/69; PULSE 61; RESP 18; TEMP 36.8; O2SAT 100; BMI 28.0
--- NOTE | 2022-08-04 11:30 | WPDANESEPPF ---
Anes - Initial Pre Proc Eval Procedure: Operation Date: 08/04/22 12:30 Proposed Procedures p Esophagogastroduodenoscopy - Ignacio Harris MD Date/Time: 08/04/22 11:30 Surgeon: Ignacio Harris MD Pre Op Diagnosis: N&V, Barakat's Esophagus Patient Data Age: 47 Gender: F Height: 1.57 m Weight: 69.5 kg Last Vital Signs Temp 98.2 F 08/04/22 11:10 Pulse 61 08/04/22 11:10 Resp 18 08/04/22 11:10 BP 115/69 08/04/22 11:10 Pulse Ox 100 08/04/22 11:10 O2 Del Method Room Air 08/04/22 11:10 Allergies Allergy/AdvReac Type Severity Reaction Status Date / Time ciprofloxacin Allergy Mild NAUSEA Verified 07/26/22 13:36 propoxyphene Allergy Mild RASH Verified 07/26/22 13:36 acetaminophen Allergy itching Verified 07/26/22 13:36 [From RodrickManuel] baclofen Allergy BP weird Verified 07/26/22 13:36 ofloxacin Allergy Unknown Verified 07/26/22 13:36 Home Medications Medication Instructions Recorded Confirmed Type ocrelizumab 30 mg/mL intravenous 600 mg IV [id number] 04/23/19 07/26/22 History solution (Ocrevus) tizanidine 4 mg capsule 12 mg PO TID PRN Dizziness 09/16/19 07/26/22 History oxcarbazepine 300 mg tablet 400 mg PO DAILY 01/13/20 07/26/22 History fluticasone propionate 50 1 spray intranasal Q12H #15.8 mL 03/30/20 07/26/22 Rx mcg/actuation nasal spray,suspension (Flonase Allergy Relief) trazodone 50 mg tablet 100 mg PO .Qhs 03/30/20 07/26/22 History metoprolol tartrate 25 mg tablet 12.5 mg PO BID #60 tabs 01/20/22 07/26/22 Rx linaclotide 145 mcg capsule 145 mcg PO DAILY 1 month #30 caps 07/10/22 07/26/22 Rx (Linzess) metoclopramide HCl 10 mg tablet 10 mg PO Q6H PRN nausea and 07/10/22 07/26/22 Rx (Reglan) vomiting 1 month #120 tabs dexlansoprazole 60 mg 60 mg PO DAILY #30 caps 07/14/22 Rx capsule,biphase delayed release (Dexilant) bupropion HCl 300 mg 24 hr tablet, 300 mg PO AC 07/26/22 07/26/22 History extended release esomeprazole magnesium 40 mg 40 mg PO BID 07/26/22 07/26/22 History capsule,delayed release (Nexium) modafinil 200 mg tablet 200 mg PO DAILY 07/26/22 07/26/22 History solifenacin 10 mg tablet 10 mg PO DAILY 07/26/22 07/26/22 History Patient hx anesthesia problems: none Family hx anesthesia problems: none Results Review: All pre-operative results and documents have been reviewed as part of the pre-operative evaluation. [facility] Past Medical History Medical History (Updated 07/10/22 @ 16:17 by Natalya Sullivan APN-C) Anemia Anxiety Barakat's esophagus Constipation Deviated septum Gastroparesis GERD (gastroesophageal reflux disease) HTN (hypertension) Labile hypertension Multiple sclerosis Nausea and vomiting Surgical History Surgical History History of section History of cholecystectomy Family History Family History Father Hypertension Family history of transient ischemic attacks Family history of gastrointestinal disorder Family history of coronary artery disease Mother Patient's mother is in good health Grandparent Pancreatic cancer Social History Social History Smoking status: Never smoker Alcohol intake: never Substance use: current Substance use type: marijuana Other substance usage details: marijuana use before bed Lack of Transportation: No Lack of Food: Sometimes True Current Housing: I Have Housing Concerned About Future Housing: No Difficulty Paying Gas/Electric Bills: No Difficulty Paying for Meds: No Currently Unemployed: No Education: Associate Degree Difficulty w/ Childcare or Family Care: No Living arrangements: with family Spiritual care concerns: No Anes - Eval Final PreProcedure Day of Procedure 08/04/22 11:30 Patient weight: normal Heart: regular rate and rhythm Lungs: c
[2022-08-04] MEDS: LACTATED RINGERS 1,000 ML 150 ML IV CONT (11:37)
--- NOTE | 2022-08-04 11:48 | WPDHPUPDATE1 ---
History and Physical Update Update Date/Time: 08/04/22 11:48 History and Physical has been reviewed, including an updated exam of the patient. There are NO changes in the patient's condition. Risks, benefits, and alternatives have been discussed and questions answered. Patient agrees to proceed with procedure.
[2022-08-04 12:08] VITALS: BP 108/74; PULSE 68; RESP 17; O2SAT 98
[2022-08-04 12:18] VITALS: BP 110/72; PULSE 67; RESP 21; O2SAT 100
[2022-08-04 12:28] VITALS: BP 131/75; PULSE 66; RESP 19; O2SAT 99
== END 2022-08-04 12:46 | disposition home or self-care (01) ==
PROVIDERS: PCP Internal Medicine; Visit Provider Internal Medicine Gastroenterology
PROC: 0DJ08ZZ Inspection of Upper Intestinal Tract, Via Natural or Artificial Opening Endoscopic (ICD-10-PCS; CPT 43235; principal; 2022-08-04 12:30)
DX: K29.70 Gastritis, unspecified, without bleeding (principal); K21.9 Gastro-esophageal reflux disease without esophagitis; I10 Essential (primary) hypertension; G35 Multiple sclerosis; F41.9 Anxiety disorder, unspecified; K59.00 Constipation, unspecified; Z79.620 Long term (current) use of immunosuppressive biologic; F12.90 Cannabis use, unspecified, uncomplicated
CPT/HCPCS: 43239; 87081; 88305; J2704; J7120

== ENCOUNTER 2023-01-03 10:53 | Outpatient (CLI) | payer OTHER, SELFPAY ==
[2023-01-03 11:55] LABS: Basophils Absolute Auto 0.1 K/mm3 (0.0-0.1); Basophils Percent Auto 0.6 % (0.2-1.2); Eosinophils Absolute Auto 0.3 K/mm3 (0-0.3); Eosinophils Percent Auto 3.3 % (0-4.4); Hematocrit 37.6 % (37.0-47.0); Hemoglobin 12.7 g/dL (12.0-15.0); Immature Granulocyte Absolute 0.04 K/mm3 (0.00-0.031); Immature Granulocyte Percent A 0.5 % (0-0.5); Lymphocytes Absolute Auto 2.03 K/mm3 (0.9-3.2); Lymphocytes Percent Auto 24.9 % (18.3-44.2); Mean Corpuscular HGB Conc 33.8 g/dl (32-36); Mean Corpuscular Hemoglobin 32.4 pg (26-34); Mean Corpuscular Volume 95.9 fl (80-100); Mean Platelet Volume 10.5 fl (7.4-10.4); Monocytes Absolute Auto 0.7 K/mm3 (0.1-0.6); Monocytes Percent Auto 8.9 % (2.6-8.5); Neutrophils Percent Auto 61.8 % (45.5-73.1); Platelet Count Result 273 k/mm3 (150-375); Red Blood Count 3.92 M/mm3 (4.2-5.4); Red Cell Distribution Width 12.4 % (11.5-14.5); White Blood Count 8.2 K/mm3 (4.5-10.0)
[2023-01-03 12:07] LABS: Alanine Aminotransferase 31 U/L (6-35); Albumin Level 4.3 g/dL (3.5-5.1); Alkaline Phosphatase 99 U/L (38-126); Anion Gap 5 mmol/L (8-16); Aspartate Amino Transferase 31 U/L (14-36); Bilirubin,Total 0.5 mg/dL (0.2-1.3); Blood Urea Nitrogen 9 mg/dL (7-17); Calcium 8.8 mg/dL (8.4-10.2); Carbon Dioxide 29 mmol/L (22-30); Chloride 101 mmol/L (98-107); Estimated Glomerular Filt Rate > 60; Glucose 97 mg/dL (65-110); Potassium 3.9 mmol/L (3.4-5.0); Sodium 135 mmol/L (137-145)
[2023-01-03 12:13] LABS: Immunoglobulin A 181 mg/dL (70-400); Immunoglobulin G 1097 mg/dL (700-1600); Immunoglobulin M 67 mg/dL (40-230)
[2023-01-06 19:52] LABS: Immunoglobulin E 9 kU/L (<=114)
== END 2023-01-03 10:54 | disposition home or self-care (01) ==
PROVIDERS: PCP Internal Medicine; Visit Provider Psychiatry & Neurology Neurology
DX: G35 Multiple sclerosis (principal); Z79.899 Other long term (current) drug therapy
CPT/HCPCS: 36415; 80053; 82784; 82785; 85025

== ENCOUNTER 2023-06-27 11:20 | Outpatient (CLI) | payer OTHER, SELFPAY ==
[2023-06-27 12:27] LABS: Basophils Absolute Auto 0.1 K/mm3 (0.0-0.1); Basophils Percent Auto 0.7 % (0.2-1.2); Eosinophils Absolute Auto 0.2 K/mm3 (0-0.3); Eosinophils Percent Auto 3.1 % (0-4.4); Hematocrit 34.6 % (37.0-47.0); Hemoglobin 11.4 g/dL (12.0-15.0); Immature Granulocyte Absolute 0.03 K/mm3 (0.00-0.031); Immature Granulocyte Percent A 0.4 % (0-0.5); Lymphocytes Absolute Auto 1.91 K/mm3 (0.9-3.2); Lymphocytes Percent Auto 28.2 % (18.3-44.2); Mean Corpuscular HGB Conc 32.9 g/dl (32-36); Mean Corpuscular Hemoglobin 30.2 pg (26-34); Mean Corpuscular Volume 91.5 fl (80-100); Mean Platelet Volume 10.8 fl (7.4-10.4); Monocytes Absolute Auto 0.5 K/mm3 (0.1-0.6); Monocytes Percent Auto 7.4 % (2.6-8.5); Neutrophils Absolute Auto 4.1 K/mm3 (1.3-6.7); Neutrophils Percent Auto 60.2 % (45.5-73.1); Platelet Count Result 277 k/mm3 (150-375); Red Blood Count 3.78 M/mm3 (4.2-5.4); Red Cell Distribution Width 13.2 % (11.5-14.5); White Blood Count 6.8 K/mm3 (4.5-10.0)
[2023-06-27 12:32] LABS: Alanine Aminotransferase 19 U/L (6-35); Albumin Level 4.1 g/dL (3.5-5.1); Alkaline Phosphatase 93 U/L (38-126); Anion Gap 5 mmol/L (8-16); Aspartate Amino Transferase 22 U/L (14-36); Bilirubin,Total 0.3 mg/dL (0.2-1.3); Blood Urea Nitrogen 7 mg/dL (7-17); Calcium 8.8 mg/dL (8.4-10.2); Carbon Dioxide 25 mmol/L (22-30); Chloride 106 mmol/L (98-107); Estimated Glomerular Filt Rate > 60; Glucose 101 mg/dL (65-110); Potassium 3.7 mmol/L (3.4-5.0); Sodium 136 mmol/L (137-145)
[2023-06-27 12:59] LABS: Immunoglobulin A 176 mg/dL (70-400); Immunoglobulin G 1330 mg/dL (700-1600); Immunoglobulin M 66 mg/dL (40-230)
[2023-07-01 22:33] LABS: Immunoglobulin E 9 kU/L (<=114)
== END 2023-06-27 11:21 | disposition home or self-care (01) ==
LOC: ANHLAB 11:27
PROVIDERS: PCP Internal Medicine; Visit Provider Psychiatry & Neurology Neurology
DX: G35 Multiple sclerosis (principal); Z79.899 Other long term (current) drug therapy
CPT/HCPCS: 36415; 80053; 82784; 82785; 85025

== ENCOUNTER 2024-01-05 13:06 | Outpatient (CLI) | payer OTHER, SELFPAY ==
[2024-01-05 13:59] LABS: Alanine Aminotransferase 26 U/L (6-35); Albumin Level 4.5 g/dL (3.5-5.1); Alkaline Phosphatase 102 U/L (38-126); Anion Gap 12 mmol/L (4-12); Aspartate Amino Transferase 29 U/L (14-36); Bilirubin,Total 0.3 mg/dL (0.2-1.3); Blood Urea Nitrogen 5 mg/dL (7-17); Calcium 8.9 mg/dL (8.4-10.2); Carbon Dioxide 26 mmol/L (22-30); Chloride 98 mmol/L (98-107); Estimated Glomerular Filt Rate > 60; Glucose 105 mg/dL (65-110); Potassium 3.7 mmol/L (3.4-5.0); Sodium 136 mmol/L (137-145)
[2024-01-05 14:08] LABS: Immunoglobulin A 152 mg/dL (70-400); Immunoglobulin G 1435 mg/dL (700-1600); Immunoglobulin M 60 mg/dL (40-230)
[2024-01-08 21:23] LABS: Immunoglobulin E 8 kU/L (<OR=114)
== END 2024-01-05 13:07 | disposition home or self-care (01) ==
LOC: ANHLAB 13:09
PROVIDERS: PCP Internal Medicine; Visit Provider Psychiatry & Neurology Neurology
DX: G35 Multiple sclerosis (principal); Z79.899 Other long term (current) drug therapy
CPT/HCPCS: 36415; 80053; 82784; 82785

== ENCOUNTER 2024-01-28 08:39 | Outpatient (CLI) | payer OTHER, SELFPAY ==
[2024-01-28 09:21] LABS: Basophils Absolute Auto 0.1 K/mm3 (0.0-0.1); Basophils Percent Auto 0.7 % (0.2-1.2); Eosinophils Absolute Auto 0.3 K/mm3 (0-0.3); Eosinophils Percent Auto 3.6 % (0-4.4); Hematocrit 31.8 % (37.0-47.0); Hemoglobin 10.5 g/dL (12.0-15.0); Immature Granulocyte Absolute 0.02 K/mm3 (0.00-0.031); Immature Granulocyte Percent A 0.3 % (0-0.5); Lymphocytes Absolute Auto 1.65 K/mm3 (0.9-3.2); Lymphocytes Percent Auto 23.5 % (18.3-44.2); Mean Corpuscular Hemoglobin 30.7 pg (26-34); Mean Platelet Volume 9.5 fl (7.4-10.4); Monocytes Absolute Auto 0.6 K/mm3 (0.1-0.6); Neutrophils Absolute Auto 4.4 K/mm3 (1.3-6.7); Neutrophils Percent Auto 62.9 % (45.5-73.1); Platelet Count Result 308 k/mm3 (150-375); Red Blood Count 3.42 M/mm3 (4.2-5.4); Red Cell Distribution Width 13.3 % (11.5-14.5)
== END 2024-01-28 08:40 | disposition home or self-care (01) ==
PROVIDERS: PCP Internal Medicine; Visit Provider Psychiatry & Neurology Neurology
DX: G35 Multiple sclerosis (principal); Z79.899 Other long term (current) drug therapy
CPT/HCPCS: 36415; 85025

== ENCOUNTER 2024-08-12 15:22 | Outpatient (CLI) | payer OTHER, SELFPAY ==
[2024-08-12 16:26] LABS: Basophils Absolute Auto 0.1 K/mm3 (0.0-0.1); Basophils Percent Auto 0.8 % (0.2-1.2); Eosinophils Absolute Auto 0.1 K/mm3 (0-0.3); Eosinophils Percent Auto 1.5 % (0-4.4); Hematocrit 34.7 % (37.0-47.0); Hemoglobin 11.2 g/dL (12.0-15.0); Immature Granulocyte Absolute 0.02 K/mm3 (0.00-0.031); Immature Granulocyte Percent A 0.3 % (0-0.5); Lymphocytes Absolute Auto 1.94 K/mm3 (0.9-3.2); Lymphocytes Percent Auto 29.3 % (18.3-44.2); Mean Corpuscular HGB Conc 32.3 g/dl (32-36); Mean Corpuscular Hemoglobin 28.6 pg (26-34); Mean Corpuscular Volume 88.5 fl (80-100); Mean Platelet Volume 9.9 fl (7.4-10.4); Monocytes Absolute Auto 0.5 K/mm3 (0.1-0.6); Neutrophils Percent Auto 60.1 % (45.5-73.1); Platelet Count Result 289 k/mm3 (150-375); Red Blood Count 3.92 M/mm3 (4.2-5.4); Red Cell Distribution Width 13.9 % (11.5-14.5); White Blood Count 6.6 K/mm3 (4.5-10.0)
[2024-08-12 16:42] LABS: Alanine Aminotransferase 19 U/L (6-35); Albumin Level 4.2 g/dL (3.5-5.1); Alkaline Phosphatase 107 U/L (38-126); Anion Gap 7 mmol/L (4-12); Aspartate Amino Transferase 21 U/L (14-36); Bilirubin,Total 0.3 mg/dL (0.2-1.3); Blood Urea Nitrogen 8 mg/dL (7-17); Calcium 8.6 mg/dL (8.4-10.2); Carbon Dioxide 27 mmol/L (22-30); Chloride 102 mmol/L (98-107); Estimated Glomerular Filt Rate > 60; Glucose 82 mg/dL (65-110); Potassium 3.6 mmol/L (3.4-5.0); Sodium 136 mmol/L (137-145)
[2024-08-12 16:55] LABS: Immunoglobulin A 137 mg/dL (70-400); Immunoglobulin G 1533 mg/dL (700-1600); Immunoglobulin M 54 mg/dL (40-230)
[2024-08-14 16:37] LABS: Immunoglobulin E 7 kU/L (<OR=114)
== END 2024-08-12 15:23 | disposition home or self-care (01) ==
PROVIDERS: PCP Internal Medicine; Visit Provider Psychiatry & Neurology Neurology
DX: G35 Multiple sclerosis (principal); Z79.899 Other long term (current) drug therapy
CPT/HCPCS: 36415; 80053; 82784; 82785; 85025

== ENCOUNTER 2025-02-11 14:33 | Outpatient (CLI) | payer OTHER, SELFPAY ==
[2025-02-11 15:14] LABS: Hematocrit 32.7 % (37.0-47.0); Hemoglobin 10.6 g/dL (12.0-15.0); Immature Granulocyte Percent A 0.4 % (0-0.5); Lymphocytes Absolute Auto 1.80 K/mm3 (0.9-3.2); Mean Corpuscular HGB Conc 32.4 g/dl (32-36); Mean Corpuscular Hemoglobin 29.1 pg (26-34); Mean Corpuscular Volume 89.8 fl (80-100); Nucleated Red Blood Cells Absolute Auto 0.000 K/mm3 (0.0-0.012); Nucleated Red Blood Cells Perc 0.0 % (0.0-0.2); Platelet Count Result 320 k/mm3 (150-375); Red Blood Count 3.64 M/mm3 (4.2-5.4); White Blood Count 7.2 K/mm3 (4.5-10.0)
[2025-02-11 15:35] LABS: Alanine Aminotransferase 17 U/L (6-35); Albumin Level 4.2 g/dL (3.5-5.1); Alkaline Phosphatase 94 U/L (38-126); Anion Gap 6 mmol/L (4-12); Aspartate Amino Transferase 27 U/L (14-36); Bilirubin,Total 0.3 mg/dL (0.2-1.3); Blood Urea Nitrogen 7 mg/dL (7-17); Calcium 8.8 mg/dL (8.4-10.2); Carbon Dioxide 30 mmol/L (22-30); Chloride 102 mmol/L (98-107); Estimated Glomerular Filt Rate > 60; Glucose 92 mg/dL (65-110); Potassium 3.7 mmol/L (3.4-5.0); Sodium 138 mmol/L (137-145); Total Protein 7.9 g/dL (6.3-8.2)
[2025-02-11 15:42] LABS: Immunoglobulin A 114 mg/dL (70-400); Immunoglobulin G 1638 mg/dL (700-1600); Immunoglobulin M 46 mg/dL (40-230)
--- OUTSIDE RECORDS SUMMARY | 2025-02-11 16:31 | XMS_ITS | Clinical Summary ---
Author Organization [facility] Address [address] [place] [address] Care Team Providers Care Sustainability Purchasing Agent Name Role Phone Margarito Sims DO Primary Care Provider Source Comments [facility],non-owned Affiliates and Associated Physician Practices is amultiple site organization consisting of ambulatory clinics and hospital sitesin [place], [place], [place] and [place]. This disclosure is being madepursuant to the Care Everywhere program and may not contain all information available regarding this patient. 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 Gender Identity Not on file Sexual Orientation Not on file Plan of Treatment Health Maintenance Due Date Last Done Comments COLOGUARD (AGES 45-75) - COL ON CA SCREENING 1975 COLON MONITORING 1975 COLONOSCOPY - COLON CA SCREENING 1973 CT COLONOGRAPHY - COLON CA SCREENING 1975 Colorectal Cancer Screening 1975 FIT - COLON CA SCREENING 1975 FLEX SIG - COLON CA SCREENING 1975 LIPID TESTING 1975 MAMMOGRAM 1975 HIV SCREENING 1988 HEPATITIS C SCREENING 05/13/1991 DTAP/TDAP/TD VACCINES (1 - Tdap) 1992 HEPATITIS B VACCINE (1 of 3 - 19+ 3-dose series) 1992 PNEUMOCOCCAL VACCINE 50+ (1 of 1 - PCV) 2023 ZOSTER VACCINE (1 of 2) 2023 DEPRESSION SCREENING 04/16/2024 COVID-19 VACCINE (2 - 2024-2 6 season) 2024 06/22/2020 INFLUENZA VACCINE (#1) 2024 6, 01/13/2015 HIB VACCINE Aged Out No longer eligi ble based on patient's age to complete this topic HPV VACCINE Aged Out No longer eligi ble based on patient's age to complete this topic MENINGOCOCCAL (Group B) VACCINE SHARED DECISION-MAKING Aged Out No longer eligible based on patient's age to complete this topic MENINGOCOCCAL GROUPS A/C/Y/W VACCINE Aged Out No longer eligible b ased on patient's age to complete this topic Insurance [address] CIGNA ANTHEM ANTHEM MEDICAID - OUT OF STATE [place] MEDICAID - OUT OF STATE CIGNA ANTHEM MEDICAID - OUT OF STATE CIGNA ANTHEM MEDICAID - OUT OF STATE [facility] Address: [facility] [id number] MEDICAID - OUT OF STATE CIGNA ANTHEM MEDICAID - OUT OF STATE CIGNA ANTH MEDICAID - OUT [place] [address] [address] [place] [address] [facility] Care Teams Sustainability Purchasing Agent Relationship Specialty Start Date End Date Margarito Sims DO PCP - General 03/17/21
--- OUTSIDE RECORDS SUMMARY | 2025-02-11 16:31 | XMS_ITS | Encounter Summary ---
Author Organization [facility] Care Team Providers Care Medical Officer Name Role Phone Andrey Millard MD Primary Care Provider + Andrey Millard MD Primary Care Provider + Andrey Millard MD Primary Care Provider + Andrey Millard MD Primary Care Provider + Margarito Sims DO Primary Care Provider Yunior Ledbetter MD Unavailable [phone] Roselyn Dickinson MD Unavailable [phone] Eris Parekh MD Unavailable [phone] Encounter Details Date Type Department Care Team (Latest Contact Info) Description 07/06/2015 Orders Only [facility] CLINCONV ProviderEvan MD [address] [place] [id number] Social History Tobacco Use Types Packs/Day Years Used Date Smoking Tobacco: Never Assessed Comments Unknown Sex and Gender Information Value Date Recorded Sex Assigned at Not on file 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 us Historical Provider Final Res ult * PROCEDURE - RESULT (07/06/2015 12:00 AM CDT) Narrative 07/06/2015 12:00 AM CDT Ordered by an unspecified provider. us Historical Provider Final Res ult documented in this encounter Visit Diagnoses Not on filedocumented in this encounter Care Teams Medical Officer Relationship Specialty Start Date End Date Andrey Millard MD [address] [place] [address] PCP - General 07/14/16 02/15/17 Andrey Millard MD [address] [place] [address] PCP - General 06/06/16 07/13/16 Andrey Millard MD [address] [place] [address] PCP - General 11/29/15 06/05/16 Andrey Millard MD [address] [place] [address] PCP - General 07/01/14 11/28/15 Margarito Sims DO [address] [place] [address] PCP - General Internal Medicine 02/16/17 Yunior Ledbetter MD [address] [facility] [address] [place] [address] Neurology 02/16/17 Roselyn Dickinson MD [address] [address] Consulting Physician Obstetrics and Gynecology 08/19/19 Eris Parekh MD [address] [address] Referring Physician Psychiatry 10/29/20 documented as of this encounter
--- OUTSIDE RECORDS SUMMARY | 2025-02-11 16:31 | XMS_ITS | Encounter Summary ---
Author Organization [facility] Address [address] [place] [address] Care Team Providers Care Family Educator Name Role Phone Margarito Sims DO Primary Care Provider Yunior Ledbetter MD Unavailable [phone] Roselyn Dickinson MD Unavailable [phone] Eris Parekh MD Unavailable [phone] Encounter Details Date Type Department Care Team (Late st Contact Info) Description 11/12/2020 Telephone [facility] - [facility] [address] [place] [address] Transcribed Order, Provider Social History Tobacco Use Types Packs/Day Years Used Date Smoking Tobacco: Never Smokeless Tobacco: Never Alcohol Use Standard Drinks/Week Comments Not Currently 0 (1 standard drink = 0.6 oz pur e alcohol) Comments No Sex and Gender Information Value Date Recorded Sex Assigned at Not on file 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 Gender Identity Not on file Sexual Orientation Not on file documented as of this encounter Plan of Treatment Not on file documented as of this encounter Visit Diagnoses Not on filedocumented in this encounter Care Teams Family Educator Relationship Specialty Start Date End Date Margarito Sims DO PCP - General Internal Medicine 02/16/17 Yunior Ledbetter MD [address] [facility] [address] [place] [address] Neurology 02/16/17 Roselyn Dickinson MD [address] [address] Consulting Physician Obstetrics and Gynecology 08/19/19 Eris Parekh MD [address] [address] Referring Physician Psychiatry 10/29/20 documented as of this encounter
--- OUTSIDE RECORDS SUMMARY | 2025-02-11 16:31 | XMS_ITS | Encounter Summary ---
Author Organization [facility] Facility Care Team Providers Care Stamping Die Maker Bench Name Role Phone Andrey Millard MD Primary Care Provider + Margarito Sims DO Primary Care Provider Yunior Ledbetter MD Unavailable Roselyn Dickinson MD Unavailable [phone] Eris Parekh MD Unavailable [phone] Encounter Details Date Type Department Care Team (Latest Contact Info) Description 07/20/2016 Orders Only [facility] ProviderEvan MD [address] [place] [id number] Social History Tobacco Use Types Packs/Day Years Used Date Smoking Tobacco: Never Alcohol Use Standard Drinks/Week Comments No 0 (1 standard drink = 0.6 oz pur e alcohol) Comments Unknown Sex and Gender Information Value Date Recorded Sex Assigned at Not on file 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 us Historical Provider Final Res ult documented in this encounter Visit Diagnoses Not on filedocumented in this encounter Care Teams Stamping Die Maker Bench Relationship Specialty Start Date End Date Andrey Millard MD [address] [place] [address] PCP - General 07/14/16 02/15/17 Margarito Sims DO [address] [place] [address] PCP - General Internal Medicine 02/16/17 Yunior Ledbetter MD [address] [facility] [address] [place] [address] Neurology 02/16/17 Roselyn Dickinson MD [address] [facility] [address] [place] [address] Consulting Physician Obstetrics and Gynecology 08/19/19 Eris Parekh MD [address] [facility] [address] [place], [place] [id number] Referring Physician Psychiatry 10/29/20 documented as of this encounter
--- OUTSIDE RECORDS SUMMARY | 2025-02-11 16:31 | XMS_ITS | Clinical Summary ---
Author Organization [facility] Address [address] [place] [id number] Care Team Providers Care Washer Engineer Name Role Phone Andrey Millard MD Primary Care Provider [phone] Social History Tobacco Use Types Packs/Day Years Used Date Smoking Tobacco: Never Assessed Comments Unknown Sex and Gender Information Value Date Recorded Sex Assigned at Not on file Legal Sex Female 8:34 PM CDT Gender Identity Not on file Sexual Orientation Not on file Plan of Treatment Health Maintenance Due Date Last Done Comments Cervical Cancer Screening Pa p Smear (Age 30 to 64) Every 3 Years 1973 Colorectal Cancer Screening Colonoscopy (10 Years) 1973 Annual Physical 1976 Hepatitis C 1991 DTaP, Tdap and Td Vaccines ( 1 - Tdap) 1992 Hepatitis B Vaccines (1 of 3 - 19+ 3-dose series) 1992 Cervical Cancer Screening Pa p with HPV Testing (Age 30 to 64) Every 5 Years 2003 Cervical Cancer Screening with HPV 2003 Mammogram Screening 2013 Pneumococcal Vaccine: 50+ Ye ars (1 of 1 - PCV) 2023 Zoster Vaccines (1 of 2) 2023 COVID-19 Vaccine ( - 2024-2 6 season) 2024 Influenza Adult (#1) 2025 Hepatitis A Vaccines Aged Out No long er eligible based on patient's age to complete this topic Meningococcal B Vaccine Aged Out No l onger eligible based on patient's age to complete this topic Meningococcal Vaccine Aged Out No alex ganesh eligible based on patient's age to complete this topic RSV Immunizations Under 20 Months Aged Out No longer eligible based on patient's age to complete this topic Care Teams Washer Engineer Relationship Specialty Start Date End Date Andrey Millard MD [address] [place] [address] [facility] - General 07/20/16
--- OUTSIDE RECORDS SUMMARY | 2025-02-11 16:31 | XMS_ITS | Clinical Summary ---
Author Organization [facility] Address [address] [place] [address] Care Team Providers Care Tailings Worker Name Role Phone Margarito Simsian Primary Care Provider Yunior Ledbetter MD Unavailable [phone] Roselyn Dickinson MD Unavailable [phone] Eris Parekh MD Unavailable Allergies Active Allergy Reactions Criticality Noted Date Comments Baclofen Rash Medium 07/10/2018 rash Ciprofloxacin Vomiting,Nausea only,Nausea And Vomiting Low 07/24/2017 Reaction: Vomiting, Codeine Stomach upset Low 07/13/2016 Stomach/GI Upset Propoxyphene-Acetaminoph en Itching Low Duloxetine Diarrhea,Vomiting Reaction: Diarrhea, Vomiting, Ofloxacin Vomiting Low Prednisone Headache Low Propoxyphene Itching,Nausea And Vomiting Low 07/24/2017 Dimethyl Fumarate Unknown Medications cholecalciferol (VITAMIN D3) 2,000 unit capsule take 2 Tablet by Oral route once 0 0 5 Active Additional Information Patient not taking.Reported on 08/13/2024 fludrocortisone 0.1 mg tablet Take 1 tablet (0.1 mg total) by mouth as needed For hypotension Active ocrelizumab (OCREVUS) 30 mg/mL solution 20 mL (600 mg total) every 6 (six) months Active amLODIPine (NORVASC) 5 mg tablet Take 2 tablets (10 mg total) by mouth daily 0 Active metoprolol tartrate (LOPRESSOR) 25 mg immediate release tablet Take 1 tablet (25 mg total) by mouth 2 (two) times a day 60 tablet 11 1 Active Additional Information Patient not taking.Reported on 08/13/2024 OXcarbazepine (TRILEPTAL) 300 mg tabletIndicatio ns:Multiple sclerosis Take 1.5 tablets (450 mg total) by mouth 2 (two) times a day 90 tablet 5 2 Active vitamin B complex capsule Take 1 capsule by mouth daily Active Linzess 145 mcg capsule Take 1 capsule (145 mcg total) by mouth daily 3 Active metoclopramide (REGLAN) 10 mg tablet TAKE 1 TABLET BY MOUTH EVERY 6 HOURS NEEDED FOR NAUSEA OR VOMITING 3 Active tiZANidine (ZANAFLEX) 4 mg tabletIndicatio ns:Multiple sclerosis Take 3 tablets (12MG) by mouth every 8 hours as needed for muscle spasms 270 tablet 5 5 Active oxyBUTYnin XL (DITROPAN-XL) 10 mg 24 hr tabletIndicatio ns:Neurogenic bladder Take 1 tablet (10 mg total) by mouth daily 30 tablet 5 5 08/14/19 26 Active buPROPion XL (WELLBUTRIN XL) 300 mg 24 hr tabletIndicatio ns:Moderate recurrent major depression (HCC) Take 1 tablet (300 mg total) by mouth daily 30 tablet 5 5 09/05/19 26 Active traZODone (DESYREL) 100 mg tabletIndicatio ns:Primary insomnia Take 1 tablet (100 mg total) by mouth nightly 30 tablet 5 5 Active modafiniL (PROVIGIL) 200 mg tabletIndicatio ns:Multiple sclerosis TAKE 1 TABLET BY MOUTH EVERY MORNING AND 1/2 TO 1 TABLET EVERY DAY AT NOON 60 tablet 4 5 Active Active Problems Problem Noted Date Diagnosed Date Neurogenic bladder 01/25/2022 Assessment & Plan (02/11/2024 7:04 PM CDT): Gemtesa 75 mg initiation. Solifenacin 10 mg only partially helpful. Assessment & Plan (08/09/2023 11:22 AM CDT): Solifenacin 10 mg daily Assessment & Plan (02/02/2023 7:16 AM CDT): Solifenacin 10 mg daily Assessment & Plan (07/28/2022 8:03 AM CDT): Solifenacin 10 mg daily Assessment & Plan (01/25/2022 6:03 PM CDT): Solifenacin 10 mg initiation. History of COVID-01/25/2022 Assessment & Plan (02/11/2024 7:11 PM CDT): November 2021: Nasal congestion, sore throat, cough, low-grade fever and fatigue Treated with Paxlovid Assessment & Plan (08/09/2023 11:23 AM CDT): COVID-02 December 2021: Nasal congestion, sore throat, cough, low-grade fever and fatigue Treated with Paxlovid Assessment & Plan (02/02/2023 7:18 AM CDT): COVID-02 December 2021: Nasal congestion, sore throat, cough, low-grade fever and fatigue Treated with Paxlovid Assessment & Plan (07/28/2022 8:11 AM CDT): COVID-02 December 2021: Nasal congestion, sore throat, cough, low-grade fever and fatigue Treated with Paxlovid Assessment & Plan (01/25/2022 6:03 PM CDT): COVID-02 December 2021: Nasal congestion, sore throat, cough, low-grade fever and fatigue Treated with Paxlovid Syncope 03/01/2021 Assessment & Plan (03/01/2021 1:24 PM WEB CONTENT COORDINATOR): Recurrent lightheadedness with instances of syncope that appear prominently positional in nature. Office vital check did not meet formal criteria for orthostatic hypotension however clinically symptoms best fit this pattern, and there may be dynamic component based on loading conditions, etc. Orthostatic intolerance. Lower suspicion for primary cardiac pathology however given overt syncope will obtain testing to objectively rule out arrhythmia or structural heart disease. Likely multifactorial; BB, trazodone, prn tizanadine could be contributing though non are new. - echo, 30 day event monitor - advised use of compression stockings; abdominal binder could be useful as well - trial changing to metoprolol tartrate 12.5 qAM and 25 qPM. Assess symptoms and 2-3 weeks home BP data after change Trigeminal neuralgia of left side of face 2019 Assessment & Plan (02/11/2024 7:11 PM CDT): Oxcarbazepine 450 mg twice a day. Risks discussed including hyponatremia. Previously tried gabapentin and Lyrica Assessment & Plan (08/09/2023 11:21 AM CDT): Oxcarbazepine 450 mg twice a day. Risks discussed including hyponatremia. Previously tried gabapentin and Lyrica Assessment & Plan (02/02/2023 7:16 AM CDT): Oxcarbazepine 450 mg twice a day. Risks discussed including hyponatremia. Previously tried gabapentin and Lyrica Assessment & Plan (07/28/2022 8:02 AM CDT): Oxcarbazepine 450 mg twice a day. Risks discussed including hyponatremia. Previously tried gabapentin and Lyrica Assessment & Plan (01/25/2022 5:57 PM CDT): Oxcarbazepine 450 mg twice a day. Risks discussed including hyponatremia. Assessment & Plan (07/27/2021 10:36 AM CDT): Oxcarbazepine 450 mg twice a day. Risks discussed including hyponatremia. Assessment & Plan (08/22/2020 8:01 AM CDT): Oxcarbazepine 450 mg twice a day. Risks discussed including hyponatremia. Assessment & Plan (03/21/2020 4:31 PM WEB CONTENT COORDINATOR): Oxcarbazepine 450 mg twice a day. Risks discussed including hyponatremia. Assessment & Plan (12/10/2019 2:26 PM CDT): BMP today to a screen for hyponatremia. If sodium level normal, increase oxcarbazepine to 450 mg twice a day. Risk of hyponatremia explained to patient. Depression, controlled 09/15/2019 Assessment & Plan (02/11/2024 7:11 PM CDT): Bupropion XL 300 mg daily Previously on sertraline Cymbalta caused her to feel l oopy. Assessment & Plan (08/09/2023 11:23 AM CDT): Bupropion XL 300 mg daily Previously on sertraline Cymbalta caused her to feel l oopy. Assessment & Plan (02/02/2023 7:18 AM CDT): Bupropion XL 300 mg daily Previously on sertraline Cymbalta caused her to feel l oopy. Assessment & Plan (07/28/2022 8:04 AM CDT): Bupropion XL 300 mg daily Previously on sertraline Cymbalta caused her to feel l oopy. Assessment & Plan (01/25/2022 5:58 PM CDT): Bupropion XL 300 mg daily Previously on sertraline Assessment & Plan (07/27/2021 10:42 AM CDT): Increase bupropion XL to 300 mg daily Previously on sertraline Assessment & Plan (03/21/2020 4:33 PM WEB CONTENT COORDINATOR): Bupropion XL 300 mg daily Sertraline 50 mg daily Follow-up with Dr. Parekh at [facility] Refractory to numerous antidepressants including Prozac, Cymbalta and Trintellix. Assessment & Plan (12/10/2019 2:30 PM CDT): [facility] evaluation recommended again. Bupropion XL 300 mg daily Refractory to numerous antidepressants including Prozac, Cymbalta and Trintellix. Assessment & Plan (09/15/2019 1:00 PM CDT): [facility] referral Increased bupropion XL 150 mg daily to 300 mg daily. Refractory to numerous antidepressants including Prozac, Cymbalta and Trintellix. Cognitive impairment due to multiple sclerosis 1 05/30/2018 Assessment & Plan (02/11/2024 7:11 PM CDT): Word-finding difficulty, short-term memory loss and multitasking problems. Processing speed test delayed (raw score 36, adjusted z-score -1.43 on 03/27/19) Compensatory strategies discussed Assessment & Plan (08/09/2023 11:21 AM CDT): Word-finding difficulty, short-term memory loss and multitasking problems. Processing speed test delayed (raw score 36, adjusted z-score -1.43 on 03/27/19) Compensatory strategies discussed Assessment & Plan (02/02/2023 7:16 AM CDT): Word-finding difficulty, short-term memory loss and multitasking problems. Processing speed test delayed (raw score 36, adjusted z-score -1.43 on 03/27/19) Compensatory strategies discussed Assessment & Plan (07/28/2022 8:02 AM CDT): Word-finding difficulty, short-term memory loss and multitasking problems. Processing speed test delayed (raw score 36, adjusted z-score -1.43 on 03/27/19) Compensatory strategies discussed Assessment & Plan (01/25/2022 5:58 PM CDT): Word-finding difficulty, short-term memory loss and multitasking problems. Processing speed test delayed (raw score 36, adjusted z-score -1.43 on 03/27/19) Compensatory strategies discussed Assessment & Plan (07/27/2021 10:43 AM CDT): Word-finding difficulty, short-term memory loss and multitasking problems. Processing speed test delayed (raw score 36, adjusted z-score -1.43 on 03/27/19) Compensatory strategies discussed Assessment & Plan (08/22/2020 8:02 AM CDT): Word-finding difficulty, short-term memory loss and multitasking problems. Processing speed test delayed (raw score 36, adjusted z-score -1.43 on 03/27/19) Compensatory strategies discussed Assessment & Plan (03/21/2020 4:31 PM WEB CONTENT COORDINATOR): Word-finding difficulty, short-term memory loss and multitasking problems. Processing speed test delayed (raw score 36, adjusted z-score -1.43 on 03/27/19) Compensatory strategies discussed Assessment & Plan (12/10/2019 2:28 PM CDT): Word-finding difficulty, short-term memory loss and multitasking problems. Processing speed test delayed (raw score 36, adjusted z-score -1.43 on 03/27/19) Compensatory strategies discussed Assessment & Plan (09/15/2019 12:58 PM CDT): Word-finding difficulty, short-term memory loss and multitasking problems. Processing speed test delayed (raw score 36, adjusted z-score -1.43 on 03/27/19) Compensatory strategies discussed Assessment & Plan (03/29/2019 3:08 PM WEB CONTENT COORDINATOR): Word-finding difficulty, short-term memory loss and multitasking problems. Processing speed test delayed (raw score 36, adjusted z-score -1.43 on 03/27/19) Compensatory strategies discussed High risk medication use 01/09/2018 Vitamin D deficiency 01/09/2018 Dysuria 12/25/2017 Assessment & Plan (12/25/2017 3:44 PM CDT): U/A today BAYRON (acute kidney injury) 11/26/2017 Proteinuria 08/27/2017 Abnormal LFTs 07/25/2017 Esophagitis 07/25/2017 Overview (06/03/2018): Overview: Said was on egd Dr Rodriguez this year at [facility] Gastroparesis 07/25/2017 Overview (06/03/2018): Overview: Says told has this History of TMJ disorder 07/25/2017 Hyperglycemia 07/25/2017 Medical marijuana use 07/25/2017 Microscopic hematuria 07/25/2017 Hypotension 06/21/2017 Assessment & Plan (06/21/2017 11:14 AM WEB CONTENT COORDINATOR): Some increased spasms, headaches and fatigue symptoms, but due to low blood pressures recently and today, called PCP office and Cris will go see them today at 2:30. Going to provide my direct extension so can discuss with PCP office after visit. Lumbosacral radiculopathy 04/27/2017 Assessment & Plan (04/27/2017 1:00 PM WEB CONTENT COORDINATOR): Likely cause of radiating pain down right leg. +straight leg raise test. Medrol dose pack; risks discussed including hyperglycemia. PT and MRI LS spine with contrast discussed as options if not improved. Primary insomnia 10/19/2016 Assessment & Plan (08/22/2020 8:05 AM CDT): Increase trazodone to 100 mg at night. Refractory to Ambien, Lunesta, temazepam and Belsomra Assessment & Plan (03/21/2020 4:36 PM WEB CONTENT COORDINATOR): Trazodone 50 mg at night initiation. Risks discussed. Refractory to Ambien, Lunesta, temazepam and Belsomra Assessment & Plan (12/10/2019 2:31 PM CDT): Ambien 10 mg at night as needed Refractory to Lunesta, temazepam and Belsomra Assessment & Plan (09/15/2019 1:02 PM CDT): Refractory to Lunesta, temazepam and Belsomra Will try Ambien 10 mg at night again. Risks discussed including sleep walking. Assessment & Plan (03/29/2019 3:11 PM WEB CONTENT COORDINATOR): Refractory to Lunesta, temazepam and Belsomra Will try Ambien 10 mg at night again. Risks discussed including sleep walking. Assessment & Plan (2018 6:31 PM WEB CONTENT COORDINATOR): Refractory to Ambien, Lunesta, temazepam, Belsomra Alprazolam 1 mg qhs Assessment & Plan (12/25/2017 3:46 PM CDT): Tried and failed many medications for sleep. Continue alprazolam prn for sleep. Also should consider stress reduction/relaxation techniques. Provided her with applications to help and also contact information for counselors. Assessment & Plan (11/10/2017 3:58 PM CDT): Refractory to Ambien, Lunesta, temazepam, Belsomra Alprazolam 1 mg qhs Assessment & Plan (04/27/2017 12:56 PM WEB CONTENT COORDINATOR): Refractory to Ambien, Lunesta, temazepam, Belsomra Alprazolam 1 mg qhs Assessment & Plan (10/19/2016 2:38 PM CDT): Refractory to Ambien, Lunesta, temazepam, Belsomra Alprazolam 1 mg qhs Steatosis of liver 11/24/2015 Epistaxis 08/19/2015 History of surgical procedure 08/19/2015 Sinus headache 07/13/2015 Maxillary sinusitis 07/13/2015 Chronic sphenoidal sinusitis 07/13/2015 Loss of sense of smell 06/01/2015 Allergic rhinitis due to mold 06/01/2015 Allergic rhinitis due to house dust mite 016 Parageusia 06/01/2015 Hay fever 04/20/2015 Hypertrophy of nasal turbinates 04/20/2015 Chronic infection of sinus 02/24/2015 Skin neoplasm 02/09/2015 Loss of hair 01/12/2015 Menorrhagia 01/12/2015 Multiple sclerosis, relapsing-remitting 12/31/19 14 Overview (07/02/2018): Multiple sclerosis Diagnosis 2013 DMT history Tecfidera 12/30/2013 - 03/07/2014, nausea, vomiting, diarrhea, flushing, itching, fatigue, abdominal pain Gilenya 05/28/2014 - 08/2014, headaches, hair thinning Copaxone 11/2014 - current, injection fatigue Assessment & Plan (02/11/2024 7:11 PM CDT): Likely diagnosis with moderate nonspecific white matter lesions and consistent symptoms. Approximately 18 lesions at age 34. Less than 50% lesions contain central veins on 02/23/23 MRI brain. CSF 11/05/13: 0 OCB, IgG synth 2.47, IgG Index 0.57 VEP normal 11/26/13 Next Ocrevus infusion February 19, 2024. The benefits and risks of Ocrevus discussed including serious infusion reactions, serious infections including respiratory/herpetic/PML infections and potential malignancy including breast cancer. Increased risk of serious complications including pneumonia and possibly if she develops COVID-19 reinfection discussed. Last COVID-19 vaccine July 09, 2023. She understands that Ocrevus may reduce the efficacy of a COVID-19 vaccination and potentially she may not be protected. Paxlovid again advised if she develops recurrent COVID-19. Maternal aunt with breast cancer. Annual mammograms and monthly breast self exams. Injection fatigue and nonadherence to regular Copaxone injections. Intolerant of Gilenya and Tecfidera. HAO virus antibody positive so Tysabri is not a good option. Tizanidine 12 mg at bedtime for cramping and as needed during the day Vitamin D3 4000 IU daily restart Provigil 200 mg in the morning and add 100-200 mg at noon. Had insomnia on Nuvigil. Exercise encouraged No cervical or thoracic spinal cord lesions on MRI 11/15/20 per my review. MRI brain without contrast February 2025 Assessment & Plan (08/09/2023 11:21 AM CDT): Likely diagnosis with moderate nonspecific white matter lesions and consistent symptoms. Approximately 18 lesions at age 34. Less than 50% lesions contain central veins on 02/23/23 MRI brain. CSF 11/05/13: 0 OCB, IgG synth 2.47, IgG Index 0.57 VEP normal 11/26/13 Next Ocrevus infusion January 10, 2024. The benefits and risks of Ocrevus discussed including serious infusion reactions, serious infections including respiratory/herpetic/PML infections and potential malignancy including breast cancer. Increased risk of serious complications including pneumonia and possibly if she develops COVID-19 reinfection discussed. Last COVID-19 vaccine March 21, 2023. She understands that Ocrevus may reduce the efficacy of a COVID-19 vaccination and potentially she may not be protected. Paxlovid again advised if she develops recurrent COVID-19. Maternal aunt with breast cancer. Annual mammograms and monthly breast self exams. Injection fatigue and nonadherence to regular Copaxone injections. Intolerant of Gilenya and Tecfidera. HAO virus antibody positive so Tysabri is not a good option. Tizanidine 12 mg at bedtime for cramping and as needed during the day Vitamin D3 4000 IU daily restart Provigil 200 mg in the morning and add 100-200 mg at noon. Had insomnia on Nuvigil. Exercise encouraged No cervical or thoracic spinal cord lesions on MRI 11/15/20 per my review. Assessment & Plan (02/02/2023 7:16 AM CDT): Likely diagnosis with moderate nonspecific white matter lesions and consistent symptoms. Approximately 18 lesions at age 34. Central vein sign ordered to help confirm diagnosis. CSF 11/05/13: 0 OCB, IgG synth 2.47, IgG Index 0.57 VEP normal 11/26/13 Next Ocrevus infusion July 09, 2023. The benefits and risks of Ocrevus discussed including serious infusion reactions, serious infections including respiratory/herpetic/PML infections and potential malignancy including breast cancer. Increased risk of serious complications including pneumonia and possibly if develops COVID-19 reinfection discussed. Last COVID-19 vaccine March 29, 2023. Another booster vaccination advised. She understands that Ocrevus may reduce the efficacy of a COVID-19 vaccination and potentially she may not be protected. Paxlovid again advised if she develops recurrent COVID-19. She does have a paternal aunt with breast cancer. Annual mammograms and monthly breast self exams. Injection fatigue and nonadherence to regular Copaxone injections. Intolerant of Gilenya and Tecfidera. HAO virus antibody positive so Tysabri is not a good option. Tizanidine 12 mg at bedtime for cramping and as needed during the day Vitamin D3 4000 IU daily restart Provigil 200 mg daily. Had insomnia on Nuvigil. Exercise encouraged No cervical or thoracic spinal cord lesions on MRI 11/15/20 per my review. Assessment & Plan (07/28/2022 8:01 AM CDT): Likely diagnosis with moderate nonspecific white matter lesions and consistent symptoms. Approximately 18 lesions at age 34. Central vein sign in the future will be important to help confirm diagnosis. CSF 11/05/13: 0 OCB, IgG synth 2.47, IgG Index 0.57 VEP normal 11/26/13 Next Ocrevus infusion January 01, 2023. The benefits and risks of Ocrevus discussed including serious infusion reactions, serious infections including respiratory/herpetic/PML infections and potential malignancy including breast cancer. Increased risk of serious complications including pneumonia and possibly if develops COVID-19 reinfection discussed. Last COVID-19 vaccine March 29, 2023. She understands that Ocrevus may reduce the efficacy of a COVID-19 vaccination and potentially she may not be protected. Paxlovid again advised if she develops recurrent COVID-19. She does have a paternal aunt with breast cancer. Annual mammograms and monthly breast self exams. Injection fatigue and nonadherence to regular Copaxone injections. Intolerant of Gilenya and Tecfidera. HAO virus antibody positive so Tysabri is not a good option. Tizanidine 12 mg at bedtime for cramping and as needed during the day Vitamin D3 4000 IU daily restart Provigil 200 mg daily. Had insomnia on Nuvigil. Exercise encouraged MRI brain with contrast November 2022. No cervical or thoracic spinal cord lesions on MRI 11/15/20 per my review. Assessment & Plan (01/25/2022 6:02 PM CDT): Likely diagnosis with moderate nonspecific white matter lesions and consistent symptoms. Approximately 18 lesions at age 34. Central vein sign in the future will be important to help confirm diagnosis. CSF 11/05/13: 0 OCB, IgG synth 2.47, IgG Index 0.57 VEP normal 11/26/13 Next Ocrevus infusion June 29, 2022. The benefits and risks of Ocrevus discussed including serious infusion reactions, serious infections including respiratory/herpetic/PML infections and potential malignancy including breast cancer. Increased risk of serious complications including pneumonia and possibly if develops COVID-19 reinfection discussed. J&J COVID-19 vaccine June 22, 2020, followed by Moderna vaccination. Another booster vaccination recommended. She understands that Ocrevus may reduce the efficacy of a COVID-19 vaccination and potentially she may not be protected. Paxlovid again advised if she develops recurrent COVID-19. Rd discussed, but will defer due to cardiovascular risks. She does have a paternal aunt with breast cancer. Annual mammograms required and monthly breast self exams. Injection fatigue and nonadherence to regular Copaxone injections. Intolerant of Gilenya and Tecfidera. HAO virus antibody positive so Tysabri is not a good option. Tizanidine 12 mg at bedtime for cramping and as needed during the day Vitamin D3 4000 IU daily Provigil 100-200 mg initiation. Had insomnia on Nuvigil. Exercise encouraged MRI brain with contrast November 2022. No cervical or thoracic spinal cord lesions on MRI 11/15/20 per my review. Assessment & Plan (07/27/2021 10:58 AM CDT): Likely diagnosis with moderate nonspecific white matter lesions and consistent symptoms. Approximately 18 lesions at age 34. Central vein sign in the future will be important to help confirm diagnosis. CSF 11/05/13: 0 OCB, IgG synth 2.47, IgG Index 0.57 VEP normal 11/26/13 Next Ocrevus infusion November 01, 2021. The benefits and risks of Ocrevus discussed including serious infusion reactions, serious infections including respiratory/herpetic/PML infections and potential malignancy including breast cancer. Increased risk of serious complications including pneumonia and possibly if develops COVID-19 infection discussed. J&J COVID-19 vaccine June 22, 2020, followed by 2 Moderna vaccinations. She understands that Ocrevus may reduce the efficacy of a COVID-19 vaccination and potentially she may not be protected. Joelle advised if she develops COVID 19. Rd discussed, but will defer due to cardiovascular risks. She does have a paternal aunt with breast cancer. Annual mammograms required and monthly breast self exams. Injection fatigue and nonadherence to regular Copaxone injections. Intolerant of Gilenya and Tecfidera. HAO virus antibody positive so Tysabri is not a good option. Tizanidine 12 mg 3 times a day for cramping Vit D3 4000 IU daily Off Nuvigil since causing insomnia Continue walking regularly Assessment & Plan (08/22/2020 8:00 AM CDT): Due for next Ocrevus infusion. The benefits and risks of Ocrevus discussed including serious infusion reactions, serious infections including respiratory/herpetic/PML infections and potential malignancy including breast cancer. Increased risk of serious complications if develops coronavirus infection (COVID-19) discussed patient and her including pneumonia and possible reviewed. Patient wants to continue Ocrevus. She is maintaining social distancing. Completed J&J COVID-19 vaccination. She understands that Ocrevus may reduce the efficacy of a COVID-19 vaccination and potentially she may not be protected. She does have a paternal aunt with breast cancer. Annual mammograms required and monthly breast self exams. Injection fatigue and nonadherence to regular Copaxone injections. Intolerant of Gilenya and Tecfidera. HAO virus antibody positive so Tysabri is not a good option. Stuttering not a typical finding for multiple sclerosis. ENT evaluation unremarkable. Functional component possible since stuttering intermittent. Tizanidine 12 mg 3 times a day for cramping Vit D3 4000 IU daily Off Nuvigil since causing insomnia Exercise encouraged. MRI brain only; recommended [facility] MRI access fund application of financially qualifies. Assessment & Plan (03/21/2020 4:29 PM WEB CONTENT COORDINATOR): Next Ocrevus infusion August 20, 2020. The benefits and risks of Ocrevus discussed including serious infusion reactions, serious infections including respiratory/herpetic/PML infections and potential malignancy including breast cancer. Increased risk of serious complications if develops coronavirus infection (COVID-19) discussed patient and her including pneumonia and possible reviewed. Patient wants to continue Ocrevus. She is maintaining social distancing. She does have a paternal aunt with breast cancer. Annual mammograms required and monthly breast self exams. Injection fatigue and nonadherence to regular Copaxone injections. Intolerant of Gilenya and Tecfidera. HAO virus antibody positive so Tysabri is not a good option. Stuttering not a typical finding for multiple sclerosis. ENT evaluation unremarkable. Functional component possible since stuttering intermittent. Tizanidine 12 mg 3 times a day for cramping Vit D3 4000 IU daily Off Nuvigil since causing insomnia Exercise encouraged. MRI brain only July 2020 Assessment & Plan (12/10/2019 2:30 PM CDT): Next Ocrevus infusion February 18, 2020 The benefits and risks of Ocrevus discussed including serious infusion reactions, serious infections including respiratory/herpetic/PML infections and potential malignancy including breast cancer. Increased risk of serious complications if develops coronavirus infection (COVID-19) discussed including pneumonia and possible reviewed. Patient wants to continue Ocrevus. Both she and her are staying at home. She is maintaining social distancing. She does have a paternal aunt with breast cancer. Annual mammograms required and monthly breast self exams. Injection fatigue and nonadherence to regular Copaxone injections. Intolerant of Gilenya and Tecfidera. HAO virus antibody positive so Tysabri is not a good option. Stuttering not a typical finding for multiple sclerosis. ENT evaluation unremarkable. Functional component possible since stuttering intermittent. Tizanidine 12 mg 3 times a day for cramping Vit D3 4000 IU daily Off Nuvigil since causing insomnia Exercise encouraged. MRI brain only July 2020 Assessment & Plan (09/15/2019 1:05 PM CDT): Next Ocrevus infusion February 18, 2020 The benefits and risks of Ocrevus discussed including serious infusion reactions, serious infections including respiratory/herpetic/PML infections and potential malignancy including breast cancer. Increased risk of serious complications if develops coronavirus infection (COVID-19) discussed including pneumonia and possible reviewed. Patient wants to continue Ocrevus. Both she and her are staying at home. She is maintaining social distancing. She does have a paternal aunt with breast cancer. Annual mammograms required and monthly breast self exams. Injection fatigue and nonadherence to regular Copaxone injections. Intolerant of Gilenya and Tecfidera. HAO virus antibody positive so Tysabri is not a good option. Vit D3 4000 IU daily Off Nuvigil since causing insomnia Exercise encouraged For hearing loss and throat spasms, ENT evaluation with Dr. Lester Reyes. MRI brain only July 2020 Assessment & Plan (03/29/2019 3:06 PM WEB CONTENT COORDINATOR): Next Ocrevus infusion July 2019. The benefits and risks of Ocrevus discussed including serious infusion reactions, serious infections including respiratory/herpetic/PML infections, harm, and potential malignancy including breast cancer. She does have a paternal aunt with breast cancer. Annual mammograms required and monthly breast self exams. Injection fatigue and nonadherence to regular Copaxone injections. Intolerant of Gilenya and Tecfidera. HAO virus antibody positive so Tysabri is not a good option. Vit D3 4000 IU daily On Nuvigil 100 mg daily for fatigue Exercise encouraged Assessment & Plan (09/17/2018 1:27 PM CDT): Order placed for MRI of the cervical and thoracic spine to rule out any new lesion or inflammation causing upper chest and mid abdominal spasms. Did encourage her to also follow up with her PCP this week. Reordered tizanidine 2mg TID for spasms. Can continue clonazepam 1mg BID but discussed risks with other medications, addiction and marijuana use Blood work and UA today Continue speech therapy Follow up as already scheduled with Dr. Ledbetter Assessment & Plan (08/08/2018 2:17 PM CDT): Dr. Ledbetter evaluated patient as well. Unclear etiology of speech change. MRI of the brain with and without contrast now. Clonazepam 1mg q 12 hours prn. Do not take alprazolam. Discussed fatigue, dizziness Contact us if symptoms change Follow up as scheduled with Dr. Ledbetter in November Assessment & Plan (2018 6:30 PM WEB CONTENT COORDINATOR): Discontinue Copaxone 2 months ago on her own. Injection fatigue and nonadherence to regular injections. Intolerant of Gilenya and Tecfidera. HAO virus antibody positive so Tysabri is not a good option. Patient most interested in initiating Ocrevus. The benefits and risks of Ocrevus discussed including serious infusion reactions, serious infections including respiratory/herpetic/PML infections, harm, and potential malignancy including breast cancer. She does have a paternal aunt with breast cancer. Annual mammograms required and monthly breast self exams. Vit D3 3000 IU daily On Nuvigil 100 mg daily for fatigue Exercise encouraged Assessment & Plan (01/16/2018 10:17 AM CDT): MS focus appointment today. Reviewed history including MRI scans. Discussed her fatigue and ongoing symptoms. MRI of the brain with and without contrast today to assess for interval change or relapse. Blood pressure elevations so would avoid IVMP unless absolutely necessary by MRI scan Non-compliance with Copaxone, has tried Tecfidera and Gilenya. Does not want injectable options. Aubagio not likely good option due to increased blood pressure Risks and benefits of Tysabri discussed including serious infusion reaction, hepatotoxicity, serious infection including PML, and even . Discussed Ocrevus. Risks include potential infusion reactions, potential increase risk of infection including respiratory, herpes and PML, potential increased risk of malignancy including breast cancer. She would like to move forward with Tysabri if JCV ab negative. Blood work today Continue symptom management Discussed fatigue, including Nuvigil. She will try to take 1/2 ow 1/4 dose. 1 tablet keeps her up at night. Get mammogram Follow up is already scheduled for May 2018. Will discuss lab results and MRI results and make decision about DMT at that time. Continue Copaxone for now Assessment & Plan (12/25/2017 3:43 PM CDT): We had a long discussion regarding her ongoing every day symptoms. No signs of MS relapses. MRIs stable. Stay on Copaxone recommended. We discussed her medical marijuana use and discussed its risks especially in regards to MS and cognition. Start baclofen 10mg up to TID for spasms. No renal dysfunction according to blood work and Dr. Downs. Follow up in 6 months Assessment & Plan (11/10/2017 3:56 PM CDT): Copaxone 40 mg TIW. Risks discussed including IPIR, lipoatrophy. Nuvigil 200 mg daily restart if OK with Dr. Downs Vit D3 3000 IU daily MRI brain only October 2018 Exercise Assessment & Plan (06/21/2017 11:14 AM WEB CONTENT COORDINATOR): Copaxone Assessment & Plan (04/27/2017 12:58 PM WEB CONTENT COORDINATOR): Copaxone 40 mg TIW. Risks discussed including IPIR, lipoatrophy. Neurontin 800 mg TID Nuvigil 200 mg daily Vit D3 4000 IU daily MRI brain only October 2018 Exercise Repeat U/A in one week for microhematuria. Assessment & Plan (10/19/2016 2:37 PM CDT): Copaxone 40 mg TIW Neurontin 800 mg TID Nuvigil Vit D3 5000 IU daily Exercise Notalgia 11/14/2013 Lumbago 11/14/2013 Cervicalgia 09/23/2013 Gastroesophageal reflux disease 01/31/2013 Overview (07/20/2016): GERD (gastroesophageal reflux disease) Migraine without aura and wi thout status migrainosus, not intractable 01/31/2013 Overview (07/20/2016): Migraine Assessment & Plan (02/11/2024 7:11 PM CDT): Discontinued Aimovig due to high txs-wr-xvcawl cost. On metoprolol Ibuprofen 400 mg usually effective Tried Topamax, Zonegran and nortriptyline past. Cannabis helpful. Assessment & Plan (08/09/2023 11:22 AM CDT): Discontinued Aimovig due to high mhb-ou-xalpsc cost. On metoprolol Ibuprofen 400 mg usually effective Tried Topamax, Zonegran and nortriptyline past. Cannabis helpful. Assessment & Plan (02/02/2023 7:17 AM CDT): Discontinued Aimovig due to high sxs-fz-xqgeot cost. On metoprolol Ibuprofen 400 mg usually effective Tried Topamax, Zonegran and nortriptyline past. Cannabis helpful. Assessment & Plan (07/28/2022 8:03 AM CDT): Discontinued Aimovig due to high mlm-fy-fbmxbp cost. On metoprolol Ibuprofen 400 mg usually effective Tried Topamax, Zonegran and nortriptyline past. Cannabis helpful. Assessment & Plan (01/25/2022 6:00 PM CDT): Discontinued Aimovig due to high cnb-wb-lywsns cost. On metoprolol 12.5 mg daily Ibuprofen 400 mg usually effective Tried Topamax, Zonegran and nortriptyline past. Medical cannabis helpful. Assessment & Plan (07/27/2021 10:44 AM CDT): Discontinued Aimovig due to high tje-zk-ytapcf cost. On metoprolol 12.5 mg daily Ibuprofen 400 mg usually effective Tried Topamax, Zonegran and nortriptyline past. Assessment & Plan (08/22/2020 8:02 AM CDT): Resume Aimovig 70 mg every month. Previously significantly reduced migraine frequency. Complete [employer] patient assistance. On metoprolol 50 mg daily Ibuprofen 400 mg usually effective Tried Topamax, Zonegran and nortriptyline past. Assessment & Plan (03/21/2020 4:30 PM WEB CONTENT COORDINATOR): Aimovig 70 mg every month. Significantly reducing migraine frequency. On metoprolol 50 mg daily Ibuprofen 400 mg usually effective Try Topamax, Zonegran and nortriptyline past. Assessment & Plan (12/10/2019 2:29 PM CDT): On metoprolol 50 mg daily Due to 2 migraines per week, will start Aimovig. Risks discussed including injection site reactions and allergic reactions. Ibuprofen 400 mg usually works. Tried Topamax, Zonegran and nortriptyline in past. Assessment & Plan (09/15/2019 12:59 PM CDT): On metoprolol Ibuprofen 400 mg usually works. Tried Topamax, Zonegran and nortriptyline Botox and CGRP therapy are future options Assessment & Plan (03/29/2019 3:08 PM WEB CONTENT COORDINATOR): On metoprolol Tried Topamax, Zonegran and nortriptyline Botox and CGRP therapy are future options Assessment & Plan (2018 6:30 PM WEB CONTENT COORDINATOR): On metoprolol Tried Topamax, Zonegran and nortriptyline Botox and CGRP therapy are future options Assessment & Plan (12/25/2017 3:44 PM CDT): Tried Topamax, Zonegran and nortriptyline Declined Botox for now Aimovig discussed. Assessment & Plan (11/10/2017 3:54 PM CDT): On metoprolol Restart verapamil ER 120 mg daily for migraine prevention and HTN if OK with Dr. Downs since Cr now normal. Tried Topamax, Zonegran and nortriptyline Declined Botox for now Aimovig discussed. Assessment & Plan (04/27/2017 12:58 PM WEB CONTENT COORDINATOR): On metoprolol Add verapamil ER 120 mg daily for migraine prevention and HTN. Tried Topamax, Zonegran and nortriptyline Declined Botox for now Assessment & Plan (10/19/2016 2:38 PM CDT): On Metoprolol Tried Topamax, Zonegran and nortriptyline Referral to Dr. Paz for Botox evaluation Hypercholesterolemia 01/31/2013 Overview (07/20/2016): Hypercholesteremia Hypertension 01/31/2013 Overview (07/20/2016): HTN (hypertension) Assessment & Plan (03/01/2021 1:24 PM WEB CONTENT COORDINATOR): Office values seem well controlled though pt reports labile readings particularly in evenings at home - switch metoprolol dosing as above, assess response Resolved Problems Problem Noted Date Diagnosed Date Resolved Date Muscle spasm 07/24/2017 03/21/2020 Severe recurrent major depre ssion without psychotic features 10/19/2016 07/27/2021 Assessment & Plan (08/22/2020 8:04 AM CDT): Resume bupropion XL 300 mg daily Resume 50 mg daily To reduce oyn-qz-vlbncc cost, use GoodRx. Follow-up with Dr. Parekh at [facility] Refractory to numerous antidepressants including Prozac, Cymbalta and Trintellix. Assessment & Plan (03/29/2019 3:10 PM WEB CONTENT COORDINATOR): [facility] referral Refractory to numerous antidepressants including Prozac, Cymbalta and Trintellix. Assessment & Plan (2018 6:32 PM WEB CONTENT COORDINATOR): Refractory to numerous antidepressants including Wellbutrin, Cymbalta and Trintellix. Assessment & Plan (11/10/2017 3:57 PM CDT): Refractory to numerous antidepressants including Wellbutrin, Cymbalta and Trintellix. Assessment & Plan (04/27/2017 12:57 PM WEB CONTENT COORDINATOR): Refractory to numerous antidepressants including Wellbutrin, Cymbalta and Trintellix. Assessment & Plan (10/19/2016 2:41 PM CDT): Refractory to numerous antidepressants. Appt with psychiatrist SHIRA Con't Trintellix for now. Obesity with body mass index 30 or greater 11/24/2015 03/21/2020 Nasal discharge 07/13/2015 03/21/2020 Surgical follow-up care 02/19/201509/2019 Numbness of hand 11/14/2013 03/21/2020 Pain of lower extremity 11/14/201309/2019 Neuropathy 01/31/2013 10/19/2016 Overview (07/20/2016): Neuropathy Encounters Date Type Department Care Team Description 02/04/2025 Orders Only [facility] [address] [place] [address] Yunior Ledbetter MD Multiple sclerosis (Primary Dx); High risk medication use 01/12/2025 Orders Only [facility] [address] [place] [address] Juni Ventura PA from Last 3 Months Immunizations Immunization Administration Dates Next Due DTaP 04/13/2016 Influenza, Quadrivalent, Spl it, Preservative Free, Intramuscular 03/29/2022,03/02/2016 Influenza, Unspecified 01/13/2015 GotoTel (J&J) SARS-CoV-2 Vaccination 06/22/2020 Pfizer Sars-Cov-2 Bivalent Vaccination (12+ YRS) 03/29/2022 Tdap 04/16/2016 Surgical History Surgery Date Site/Laterality Comments SECTION section LUMBAR PUNCTURE WO INJECTION , DIAGNOSTIC 11/05/2013 N/A SECTION MANDIBLE SURGERY ARTHROSCOPICALLY AIDED REPAI R TIBIAL LESION REPAIR PERONEAL TENDONS ANKL E W/ FIBULAR OSTEOTOMY CHOLECYSTECTOMY TUBAL LIGATION 04/16/2006 - 04/15/2007 KNEE ARTHROSCOPY W/ LATERAL RELEASE 04/16/2001 - 04/15/2002 FRACTURE SURGERY 04/16/2007 - 04/15/2008 Medical History Medical History Date Comments Hx Other Medical Hx of tib /fib fx on left. Hx Other Medical tmj surgery Hypertension MS (multiple sclerosis) Migraines Gastroparesis Stomach ulcer Barakat esophagus gastroparesis GERD (gastroesophageal reflux disease) Dysphagia Depression Severe recurrent major depre ssion without psychotic features (HCC) 10/19/2016 Anemia 2020 Anxiety 1988 Brain concussion 2016 Neuromuscular disorder 2014 Family History Medical History Relation Name Comments Learning disabilities Brother Gunner Dickens Mental illness Brother Gunner Dickens Vision loss Brother Gunner Dickens COPD Father Pardeep Dickens Heart Problems Father Pardeep Dickens Heart attack Father Pardeep Dickens Heart disease Father Pardeep Dickens Hypertension Father Pardeep Dickens Stroke Father Pardeep Dickens Anxiety disorder Mother Fatmata [place] Dickens COPD Mother Fatmata [place] Dickens Cancer Mother Fatmata [place] Dickens Depression Mother Fatmata [place] Dickens Emphysema Mother Fatmata [place] Ricardo Dicekns Hearing loss Mother Fatmata [place] Dickens Mental illness Mother Fatmata [place] Dickens Asthma Sister Kasey Dickens Heart disease Sister Kasey Dickens Hypertension Sister Kasey Dickens Mental illness Sister Kasey Dickens Seizures Sister aKsey Dickens Depression Son 1 Alejandro Wilcox Depression Son 2 Rashid Do Diabetes Son 3 Jose Wilcox Relation Name Status Comments Brother Gunner Dickens Father Pardeep Dickens Mother Fatmata Silva Dickens Sister Kasey Dickens Son 1 Alejandro Wilcox Son 2 Rashid Do Son 3 Jose [place] Social History Tobacco Use Types Packs/Day Years Used Date Smoking Tobacco: Never Smokeless Tobacco: Never Alcohol Use Standard Drinks/Week Comments Not Currently 0 (1 standard drink = 0.6 oz pur e alcohol) Comments No Sex and Gender Information Value Date Recorded Sex Assigned at Not on file Legal Sex Female 2:46 AM WEB CONTENT COORDINATOR Gender Identity Not on file Sexual Orientation Not on file Obstetrics History Para Term AB IAB SAB Ectopic Multiple Livin g Live Births 6 4 3 1 2 1 1 0 0 4 4 Date Outcome GA Total Labor Labor/2nd/3rd Weight Sex Type Anes PTL Shania A1 A5 Name Clin SAB IAB 1992 Term M Vag-F orcep s Living 1996 Term M Vag-S pont Y Living Complications:None 1997 Term M Vag-S pont Y Living Complications:None 2005 M CS-Un spec Y Living Complications:Breech Last Filed Vital Signs Vital Sign Reading Time Taken Comments Blood Pressure 140/82 08/21/2024 1:32 PM CDT Pulse 73 08/21/2024 1:32 PM CDT Temperature 35.8 C (96.5 F) 08/21/2024 1:32 PM CDT Respiratory Rate 20 08/21/2024 1:32 PM CDT Oxygen Saturation 97% 08/21/2024 1:32 PM CDT Inhaled Oxygen Concentration - - Weight 72.5 kg (159 lb 14.4 oz) 08/13/2024 9:46 AM CDT Height 157.5 cm (5' 2) 08/13/2024 9:46 AM CDT Body Mass Index 29.25 08/13/2024 9:46 AM CDT Plan of Treatment Health Maintenance Due Date Last Done Comments Cervical Cancer Screening 1973 Depression Screening 1973 Regular Well Visit/Exam 18-64 1991 Pneumococcal vaccine <65 (1 of 2 - PCV) 1992 Breast Cancer Screening-Mammogram 2019 019 Zoster Vaccine (1 of 2) 2023 Covid-19 Vaccine (8 - 2023-2 5 season) 2024 05/27/2024, 03/21/2023, 03/29/2022, Additional history exists Influenza Vaccine (#1) 2024 , 03/21/2023, 03/29/2022, Additional history exists Colon Cancer Screening-Colonoscopy 07/05/20252015 DTaP/Tdap/Td Vaccine (3 - Td or Tdap) 04/16/2026 04/16/2016, 04/13/2016 Hepatitis B Screening Completed 2018 Hepatitis C Screening Completed 2018 , 06/22/2016, 02/28/2011 Procedures Procedure Name Priority Date/Time Associated Diagnosis Comments HEPATITIS PANEL, ACUTE Routine 2018 1:10 PM WEB CONTENT COORDINATOR Multiple sclerosis (HCC) SCREENING MAMMOGRAM BILATERAL W GABE Schedule Routine, Read Routine (OP Routine) 2018 12:36 PM WEB CONTENT COORDINATOR Screening breast examination COLONOSCOPY REPORT 07/06/2015 from Last 3 Months or Most Recently Relevant to Health Maintenance Results * Hepatitis panel, acute (2018 1:10 PM WEB CONTENT COORDINATOR) Hep A IgM Non-Reacti ve Non-Reacti ve [facility] Hep B core IgM Non-Reacti ve Non-Reacti ve [facility] Hep C Ab Non-Reacti ve Non-Reacti ve [facility] HepBsAg Non-Reacti ve Non-Reacti ve [facility] Blood specimen (specimen) 2018 1:10 PM WEB CONTENT COORDINATOR 2018 1:10 PM WEB CONTENT COORDINATOR Narrative [facility] - 2018 1:59 PM WEB CONTENT COORDINATOR Yunior Ledbetter MD LAB MICROBIOLOGY - GENERAL OR DERABLES Final Result [facility] [address] Department [place] [address] * Screening Mammogram Bilateral W Gabe (2018 12:36 PM WEB CONTENT COORDINATOR) Anatomical Region Laterality Modality Breast Bilateral Mammography Addenda Addendum by Teagan Frazier MD on 05/22/2018 8:31 AM WEB CONTENT COORDINATOR Correction regarding the comparison: Comparison was made with prior mammogram 04/15/12. Overall Assessment: 1 - Negative Narrative 05/22/2018 8:30 AM WEB CONTENT COORDINATOR Screening Mammogram Bilateral W Gabe: 05/17/18 Clinical: Screening breast examination. Prior Study Comparisons: 2009 Findings: Bilateral No significant masses, malignant type calcifications, skin thickening, nipple retraction, or significant lymphadenopathy is noted in either breast. The CAD review showed no significant findings. The breasts are heterogeneously dense, which may obscure small masses. The patient will be notified of results by letter. Impression: BI-RADS ATLAS category (overall): 1 Negative There is no mammographic evidence of malignancy. Routine Screening Mammogram in 1 Yr is recommended for bilateral Overall Assessment: 1 - Negative Yunior Ledbetter MD IMG MAMMO PROCEDURES Edited R esult - Final * COLONOSCOPY REPORT (07/06/2015) Anatomical Region Laterality Modality Other Narrative 07/06/2015 Ordered by an unspecified provider. [facility] Provider GI PROCEDURE ORDERABLES F inal Result from Last 3 Months or Most Recently Relevant to Health Maintenance Insurance [facility] Advance Directives For more information, please contact: [phone] * Full Code (Latest Code Status on File) Date Activated Date Inactivated Comments 03/10/2019 10:42 AM 03/10/2019 3:54 PM Care Teams Tailings Worker Relationship Specialty Start Date End Date Margarito Sims DO PCP - General Internal Medicine 02/16/17 Yunior Ledbetter MD [address] [place] [address] Neurology 02/16/17 Roselyn Dickinson MD [address] [facility] [address] [place] [address] Consulting Physician Obstetrics and Gynecology 08/19/19 Eris Parekh MD [address] [address] Referring Physician Psychiatry 10/29/20
--- OUTSIDE RECORDS SUMMARY | 2025-02-11 16:31 | XMS_ITS | Patient Health Record ---
Author Organization [facility] Address [address] [facility] [address] [place], [place] [id number] Care Team Providers Care Coat Fitter Name Role Phone [facility] Primary Care Provider Shaheen Oliva Unavailable [phone] ALLERGIES Allergen (clinical drug ingredient) Drug/Non Drug Allergy documented on EMR Reaction Allergy Type Onset Date Status ciprofloxacin ciprofloxacin Unknown Drug Allergy Active Hydrocodone CP Unknown Drug Allergy Ac tive REASON FOR REFERRAL No Information MEDICATIONS Medication SIG (Take, Route, Fr equency, Duration) Notes Start Date End Date Status fenofibrate 140 mg 1 cap(s) orally once a day for 30 day(s) Active Ambien 2.5 mg 1 tab(s) orally once a day (at bedtime) Active Ultram 50 mg 1 tab(s) orally tid prn for 30 day 08/22/2013 Active Pristiq 100 mg 1 tab(s) orally once a day for 30 day(s) Active Topamax 25 mg 1 tab(s) orally 2 ti mes a day for 30 day(s) Active NexIUM 40 mg 1 cap(s) orally once a day for 30 day(s) Active Savella 100 mg 1 tab(s) orally 2 ti mes a day for 30 day(s) Active PROBLEMS Problem Type ICD Code Onset Dates Problem Status W/U Status Risk SNOMED Code Notes Problem Polyarthralgia (719.49) Active confirmed Polyarthralgia (48716280) Problem Myalgia (729.1) Active confirmed Myalgi a (48404471) Problem NEUROPATHY (355.9) Active confirmed Neuropathy (587518418) PLAN OF TREATMENT No Information Insurance Providers Payer Name Payer Address Payer Phone Subscriber Number Group Number Insured Name Patient Relationship to Insured Coverage Start Date Coverage End Date [employer] [address] [place] [address] [id number] David Do Spouse - patient is the spouse of the insured 4 MEDICAL (GENERAL) HISTORY Medical History History ICD Code bruises easily migraine headache loss of hearing sinus problems high blood pressure ulcers kidney infection neuropathy depression chicken pox mononucleosis
--- OUTSIDE RECORDS SUMMARY | 2025-02-11 16:31 | XMS_ITS | Encounter Summary ---
Author Organization [facility] Facility Care Team Providers Care Regulatory Affairs Intern Name Role Phone MosesdorianMargaritoian Primary Care Provider Yunior Ledbetter MD Unavailable [phone] Roselyn Dickinson MD Unavailable [phone] Eris Parekh MD Unavailable [phone] Encounter Details Date Type Department Care Team (Latest Contact Info) Description 05/24/2017 Orders Only [facility] ProviderEvan MD [address] [place] [id number] Social History Tobacco Use Types Packs/Day Years Used Date Smoking Tobacco: Never Smokeless Tobacco: Never Alcohol Use Standard Drinks/Week Comments Yes 0 (1 standard drink = 0.6 oz pur e alcohol) occassional Comments Unknown Sex and Gender Information Value Date Recorded Sex Assigned at Not on file Legal Sex Female 2:46 AM 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 Historical Provider Final Res ult documented in this encounter Visit Diagnoses Not on filedocumented in this encounter Care Teams Regulatory Affairs Intern Relationship Specialty Start Date End Date Margarito Sims DO PCP - General Internal Medicine 02/16/17 Yunior Ledbetter MD [address] [facility] [address] [place] [address] Neurology 02/16/17 Roselyn Dickinson MD [address] [facility] [address] [place], [place] [id number] Consulting Physician Obstetrics and Gynecology 08/19/19 Eris Parekh MD [address] [facility] [address] [place], [place] [id number] Referring Physician Psychiatry 10/29/20 documented as of this encounter
== END 2025-02-11 14:34 | disposition home or self-care (01) ==
LOC: ANHLAB 14:39
PROVIDERS: PCP Internal Medicine; Visit Provider Psychiatry & Neurology Neurology
DX: G35.D Multiple sclerosis, unspecified (principal); Z79.899 Other long term (current) drug therapy
CPT/HCPCS: 36415; 80053; 82784; 82785; 85025